=== PATIENT | female | born 1965 | race Caucasian/White ===

== ENCOUNTER 2017-12-09 17:40 | Inpatient (IN) ==
--- NOTE | 2017-12-09 18:02 | Emergency Department Note ---
Disposition Clinical Impression: Hypokalemia, Unable to ambulate, Weakness, Thrombocytopenia, Neuropathy Depression Qualifiers: Depression Type: unspecified Qualified Code(s): F32.9 - Major depressive disorder, single episode, unspecified Leukopenia Qualifiers: Leukopenia type: unspecified Qualified Code(s): D72.819 - Decreased white blood cell count, unspecified Back pain Qualifiers: Back pain location: low back pain Chronicity: chronic Back pain laterality: right Sciatica presence: without sciatica Qualified Code(s): M54.5 - Low back pain; G89.29 - Other chronic pain Disposition: Admitted As Inpatient Condition: Good Forms: ED Satisfaction Letter General Adult HPI - General Chief complaint: ED Fall Stated complaint: Can't walk Time Seen by Provider: 12/09/17 17:52 Source: patient Mode of arrival: ambulatory Limitations: no limitations Nursing Notes Reviewed: Yes Vital Signs Reviewed: Yes - History of Present Illness Pain Scale: 8 - Related Data Home Medications Medication Instructions Recorded Confirmed diazePAM [Valium] 5 mg PO TID 02/28/17 12/09/17 lamoTRIgine [Lamictal] 200 mg PO BID 02/28/17 12/09/17 metFORMIN [Glucophage] 500 mg PO BID 02/28/17 12/09/17 Iloperidone [Fanapt] 4 mg PO BID 03/18/17 12/09/17 Benztropine Mesylate [Benztropine 2 mg PO DAILY 12/09/17 12/09/17 Mesylate] DULoxetine [Cymbalta] 20 mg PO DAILY 12/09/17 12/09/17 OxyCODONE Immed Rel [Roxicodone 10 10 mg PO Q8H 12/09/17 12/09/17 MG] Pregabalin [Lyrica] 150 mg PO BID 12/09/17 12/09/17 Allergies Allergy/AdvReac Type Severity Reaction Status Date / Time carbamazepine [From Tegretol] Allergy See Verified 03/20/17 14:28 Comments Past Medical History - Past Medical History Medical history: Reports: diabetes, RA, other Surgical history: Reports: herniorrhaphy, orthopedic, other, other Psychiatric history: Reports: anxiety, bipolar, depression - Social History Smoking Status: Never smoker Smokeless Tobacco Status: No Alcohol use: Reports: none Drug use: Reports: none Course Vital Signs Temperature 98.0 F 12/09/17 17:45 Pulse Rate 111 12/09/17 17:45 Respiratory Rate 18 12/09/17 17:45 Blood Pressure 115/76 12/09/17 17:45 O2 Sat by Pulse Oximetry 95 12/09/17 17:45 Temperature 98.0 F 12/09/17 17:54 Pulse Rate 92 12/09/17 20:40 Respiratory Rate 16 12/09/17 20:40 Blood Pressure 142/85 12/09/17 20:40 O2 Sat by Pulse Oximetry 95 12/09/17 20:40 Oxygen Delivery Oxygen Delivery Room Air Medical Decision Making - Lab Data Result diagrams: 12/09/17 18:34 12/09/17 18:08 Lab Results 12/09/17 12/09/17 12/09/17 Range/Units 18:08 18:08 18:17 WBC (4.3-11.1) K/mcL RBC (3.82-4.97) M/mcL Hgb (11.5-15.4) g/dL Hct (35.3-44.9) % MCV (83.0-100.0) fL MCH (28.0-33.3) pg MCHC (31.6-35.5) g/dL RDW (11.5-14.5) % Plt Count (140-400) K/mcL MPV (9.4-12.4) fL Immature Gran % (0-4) % Seg Neutrophils % % Lymphocytes % % Monocytes % % Eosinophils % % Basophils % % Neutrophils # (1.6-8.9) K/mcL Lymphocytes # (0.6-4.6) K/mcL Monocytes # (0.0-1.3) K/mcL Eosinophils # (0.0-0.6) K/mcL Basophils # (0.0-0.2) K/mcL Immature Plt Fraction (1.1-6.1) % VBG pH 7.42 (7.32-7.42) pH Units VBG pCO2 43 (41-51) mmHg VBG pO2 94 H (25-50) mmHg VBG HCO3 27 (21-27) mEq/L Sodium 138 (136-145) mEq/L Potassium 3.3 L (3.5-5.1) mEq/L Chloride 102 (98-107) mEq/L Carbon Dioxide 26 (23-29) mEq/L BUN 5 L (6-20) mg/dL Creatinine 0.70 (0.60-1.20) mg/dL Est GFR ( Amer) > 60 (> 60) Est GFR (Non-Af Amer) > 60 (> 60) BUN/Creatinine Ratio 7 (6-26) Glucose 138 H (70-105) mg/dL Calculated Osmolality 285 (280-300) Calcium 9.3 (8.6-10.3) mg/dL Total Bilirubin 0.6 (0.3-1.0) mg/dL AST 24 (13-39) Units/L ALT 16 (7-52) Units/L Alkaline Phosphatase 76 (34-104) Units/L Serum Total Protein 6.4 (6.4-8.9) g/dL Albumin 4.2 (3.5-5.7) g/dL Globulin 2.2 L (2.4-3.5) g/dL Albumin/Globulin Ratio 1.9 (1.1-2.2) Urine Color (Yellow) Urine Clarity (Clear) Urine pH (5.0-8.0) pH Units Ur Specific [place] (1.010-1.025) Urine Protein (Neg-Trace) mg/dL Urine Glucose (UA) (Normal) mg/dL Urine Ketones (Negative) mg/dL Urine Blood (Negative) Urine Nitrite (Negative) Urine Bilirubin (Negative) Urine Urobilinogen (Normal) mg/dL Ur Leukocyte Esterase (Negative) Urine Microscopic RBC (0-3) per hpf Urine Microscopic WBC (0-3) per hpf Ur Squamous Epith Cells (None-Few) per lpf Urine Bacteria (None-Few) per hpf Hyaline Casts (None-Few) per lpf Ur Culture Indicated? (NO) Specimen Rejected Clotted 12/09/17 12/09/17 Range/Units 18:22 18:34 WBC 3.7 L (4.3-11.1) K/mcL RBC 4.79 (3.82-4.97) M/mcL Hgb 12.1 (11.5-15.4) g/dL Hct 38.9 (35.3-44.9) % MCV 81.2 L (83.0-100.0) fL MCH 25.3 L (28.0-33.3) pg MCHC 31.1 L (31.6-35.5) g/dL RDW 16.6 H (11.5-14.5) % Plt Count 51 L (140-400) K/mcL MPV 10.4 (9.4-12.4) fL Immature Gran % 0.5 (0-4) % Seg Neutrophils % 69.8 % Lymphocytes % 20.7 % Monocytes % 8.2 % Eosinophils % 0.5 % Basophils % 0.3 % Neutrophils # 2.6 (1.6-8.9) K/mcL Lymphocytes # 0.8 (0.6-4.6) K/mcL Monocytes # 0.3 (0.0-1.3) K/mcL Eosinophils # 0.0 (0.0-0.6) K/mcL Basophils # 0.0 (0.0-0.2) K/mcL Immature Plt Fraction 3.8 (1.1-6.1) % VBG pH (7.32-7.42) pH Units VBG pCO2 (41-51) mmHg VBG pO2 (25-50) mmHg VBG HCO3 (21-27) mEq/L Sodium (136-145) mEq/L Potassium (3.5-5.1) mEq/L Chloride (98-107) mEq/L Carbon Dioxide (23-29) mEq/L BUN (6-20) mg/dL Creatinine (0.60-1.20) mg/dL Est GFR ( Amer) (> 60) Est GFR (Non-Af Amer) (> 60) BUN/Creatinine Ratio (6-26) Glucose (70-105) mg/dL Calculated Osmolality (280-300) Calcium (8.6-10.3) mg/dL Total Bilirubin (0.3-1.0) mg/dL AST (13-39) Units/L ALT (7-52) Units/L Alkaline Phosphatase (34-104) Units/L Serum Total Protein (6.4-8.9) g/dL Albumin (3.5-5.7) g/dL Globulin (2.4-3.5) g/dL Albumin/Globulin Ratio (1.1-2.2) Urine Color Yellow (Yellow) Urine Clarity Cloudy A (Clear) Urine pH 5.0 (5.0-8.0) pH Units Ur Specific [place] 1.015 (1.010-1.025) Urine Protein Negative (Neg-Trace) mg/dL Urine Glucose (UA) Normal (Normal) mg/dL Urine Ketones Negative (Negative) mg/dL Urine Blood Negative (Negative) Urine Nitrite Negative (Negative) Urine Bilirubin Negative (Negative) Urine Urobilinogen Normal (Normal) mg/dL Ur Leukocyte Esterase Negative (Negative) Urine Microscopic RBC 0-3 (0-3) per hpf Urine Microscopic WBC 0-3 (0-3) per hpf Ur Squamous Epith Cells Many H (None-Few) per lpf Urine Bacteria None Seen (None-Few) per hpf Hyaline Casts Few (None-Few) per lpf Ur Culture Indicated? NO (NO) Specimen Rejected Attestation Statement - Attestation Attestation: Resident Attestation: I examined this patient and my medical decision making was reviewed with the Resident Physician. I agree with the documented findings, disposition and treatment plan as described except to the extent set forth below. We independently had [id number] contact with the patient. Patient with diabetes and complication still lower extremities. Patient here for evaluation of pain and decreased ability to walk. She was started on Cymbalta approximately a month ago for depression. She has also been taken off her narcotic medications and is being weaned down. The patient states that yesterday she had no significant symptoms. Today she has significant amounts of pain and decreased ability to walk. She states she has fallen multiple times. She has undergone further workup for this in the past which she was at [facility] and later went to rehabilitation for. She states that rehabilitation got her to a point where she was able to return home. Patient states these symptoms are similar in nature. Patient has no significant pain to the right shoulder as well as the left hip and lower back. These will undergo further x- ray imaging. Awake alert and oriented 3. Patient's verbal responses are slow. Her 2 poles are mildly dilated but equal and reactive. She has significant tenderness to the low back consistent with a positive Zachary sign. She also has no ability to discriminate between 2 point sensation to the lower extremities. Patient's imaging is unremarkable. She does have some chronic changes which are slightly worse on blood work. She is hypokalemic. The patient is unable to ambulate in the emergency department and will be admitted for further evaluation and management.
[2017-12-09] MEDS ORDERED: 0.9 % Sodium Chloride 1,000 ML IVC ONE (18:06)
--- NOTE | 2017-12-09 18:06 | Emergency Department Note ---
Disposition Clinical Impression: Hypokalemia, Unable to ambulate, Weakness, Thrombocytopenia, Neuropathy Depression Qualifiers: Depression Type: unspecified Qualified Code(s): F32.9 - Major depressive disorder, single episode, unspecified Leukopenia Qualifiers: Leukopenia type: unspecified Qualified Code(s): D72.819 - Decreased white blood cell count, unspecified Back pain Qualifiers: Back pain location: low back pain Chronicity: acute Back pain laterality: midline Sciatica presence: without sciatica Qualified Code(s): M54.5 - Low back pain Disposition: Admitted As Inpatient Condition: Good Referrals: Jaron Chan DPM [Primary Care Provider] - Forms: ED Satisfaction Letter Time of Disposition: 21:01 General Adult HPI - General Chief complaint: ED Fall Stated complaint: Can't walk Time Seen by Provider: 12/09/17 17:52 Source: patient Mode of arrival: ambulatory Limitations: no limitations Nursing Notes Reviewed: Yes Vital Signs Reviewed: Yes - History of Present Illness HPI Narrative: Female patient presenting to emergency department with a complaint of inability to walk today. After talking to her about this she states that when she woke up this morning she tried to get out of bed and she was just so weak that she could not stand up. She has been ambulatory however her legs frequently give out on her. She has fallen several times today. She does live with her sister. Her sister reports no syncope. The patient also states that she has not passed out. She states she has struck her head several times but is not on any blood thinners. She complains of bilateral shoulder pain as well as lower extremity weakness. Patient states that she is a diabetic. She has been taking her medication as prescribed however does not check her blood sugar. She denies any recent illnesses. She specifically denies any chest pain shortness of breath nausea vomiting diarrhea or abdominal pain. She denies any numbness or tingling in any of her extremities. She denies any burning on urination however does report decreased urination. States that she has not been eating and drinking well today. Patient had to be assisted up into the car by EMS. She does have a recent admission to a hospital in nursing facility for deconditioning and lower extremity weakness. However she is currently living with her sister. Pain Scale: 8 - Related Data Home Medications Medication Instructions Recorded Confirmed diazePAM [Valium] 5 mg PO BID 02/28/17 03/18/17 lamoTRIgine [Lamictal] 100 mg PO HS 02/28/17 03/18/17 metFORMIN [Glucophage] 500 mg PO 0800 02/28/17 03/18/17 Iloperidone [Fanapt] 4 mg PO BID 03/18/17 03/18/17 Benztropine Mesylate [Benztropine 2 mg PO DAILY 12/09/17 12/09/17 Mesylate] DULoxetine [Cymbalta] 20 mg PO DAILY 12/09/17 12/09/17 OxyCODONE Immed Rel [Roxicodone 10 10 mg PO Q8H 12/09/17 12/09/17 MG] Pregabalin [Lyrica] 150 mg PO BID 12/09/17 12/09/17 Allergies Allergy/AdvReac Type Severity Reaction Status Date / Time carbamazepine [From Tegretol] Allergy See Verified 03/20/17 14:28 Comments All systems ED: reviewed and negative except as stated. Review of Systems: As Per HPI Constitutional: Denies: fever ENT ED: Denies: congestion Cardiovascular: Denies: chest pain, palpitations, syncope Respiratory: Denies: cough, dyspnea Gastrointestinal: Denies: abdominal pain, nausea, vomiting, diarrhea, hematemesis, melena, hematochezia Genitourinary: Reports: frequency (decreased). Denies: urgency, dysuria, hematuria Musculoskeletal: Reports: other (both shoulders and lower legs). Denies: back pain, neck pain Neurological: Reports: weakness. Denies: headache, numbness, paresthesias Past Medical History - Past Medical History Attestation: Yes The following information was validated with the patient. Source: patient Medical history: Reports: diabetes, RA, other Surgical history: Reports: herniorrhaphy, orthopedic, other, other Psychiatric history: Reports: anxiety, bipolar, depression - Social History Smoking Status: Never smoker Smokeless Tobacco Status: No Alcohol use: Reports: none Drug use: Reports: none Physical Exam - General Limitations: no limitations General appearance: alert, in no apparent distress - Head Head exam: atraumatic, normocephalic, normal inspection - Eye Eye exam: Present: normal appearance, PERRL, EOMI - ENT ENT exam: normal exam, normal oropharynx, mucous membranes moist - Neck Neck exam: Present: normal inspection, full ROM, trachea midline - Chest Chest inspection: Present: normal inspection, symmetric chest wall rise - Respiratory Respiratory exam: Present: normal lung sounds bilaterally. Absent: respiratory distress, accessory muscle use - Cardiovascular Cardiovascular exam: Present: regular rate, normal rhythm, normal heart sounds - Abdominal Exam Abdominal exam: Present: soft, Non-Tender. Absent: tenderness, distention, guarding, rebound, rigidity, organomegaly, Potter's sign, tenderness at McBurney 's Point - Extremities Exam Extremities exam: Present: tenderness (Bilateral shoulders. Does have full range of motion of her shoulders. Weakness in her lower extremities. No 2 point discrimination of her lower extremities however does have good sensation throughout her lower cavities.), normal capillary refill, other (Amputation to bilateral forefeet. Does have a small abrasion to the stump on the right. Bleeding at this time. No signs of infection.). Absent: pedal edema - Back Exam Back exam: Present: normal inspection, full ROM. Absent: tenderness - Neurological Exam Neurological exam: Present: alert, oriented X3 - Psychiatric Psychiatric exam: Present: normal affect, normal mood - Skin Skin exam: Present: warm, dry, intact, normal color Course Course Narrative: Female patient with complaint of multiple falls today. She is a diabetic. 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 She does not take any blood thinners. She is mentating appropriately alert and oriented 3. Knows who the people in her room are. Pupils are equal and reactive to light. Good sensation throughout. Patient does have pain to midline palpation of the lumbar spine area. No headaches. No cervical spine tenderness step-offs or deformities to midline palpation. Also no thoracic pain step-offs or deformities to midline palpation. Abdomen is soft nontender nondistended not rigid. She states that she cannot give us urine sample but will allow us to get a catheter specimen. We will get basic lab workup on patient as well as a CT of her head and lumbar spine. We will also give her a liter of fluid at this time. She does appear to be clinically dry and she is tachycardic initially. She chronically takes Valium and Percocet. She states that she has not had her Percocet today. States that she does not take this regularly and she only takes a third of her pills which are 10 mg. Patient has no gross deformity to her extremities. She has full range of motion of both shoulders but does complain of pain to palpation of her shoulders bilaterally. No ecchymosis. Lung sounds are clear heart tones are normal. - Reevaluation(s) Reevaluation #1: CT of patient's head shows no signs of acute abnormality. She does have spinal stenosis of her lumbar area. We did provide her with a Percocet. She is unable to stand and ambulate here in emergency department. We will admit patient to the hospital for deconditioning lower extremity weakness. She was also found to be hypokalemic. We did replace this while here. She is also thrombocytopenic. She has been chemotherapy before however does appear to be worsening. - Consultations Consultation #1: Dr Baez accepted Pt in stable condition. Time: 20:46 Vital Signs Temperature 98.0 F 12/09/17 17:45 Pulse Rate 111 12/09/17 17:45 Respiratory Rate 18 12/09/17 17:45 Blood Pressure 115/76 12/09/17 17:45 O2 Sat by Pulse Oximetry 95 12/09/17 17:45 Temperature 98.0 F 12/09/17 17:54 Pulse Rate 92 12/09/17 20:40 Respiratory Rate 16 12/09/17 20:40 Blood Pressure 142/85 12/09/17 20:40 O2 Sat by Pulse Oximetry 95 12/09/17 20:40 Oxygen Delivery Oxygen Delivery Room Air Medical Decision Making - Medical Records Medical records reviewed: Yes I reviewed the patient's medical records. - Lab Data Lab results reviewed: Yes I reviewed the patient's lab results. Result diagrams: 12/09/17 18:34 12/09/17 18:08 Lab Results 12/09/17 12/09/17 12/09/17 Range/Units 18:08 18:08 18:17 WBC (4.3-11.1) K/mcL RBC (3.82-4.97) M/mcL Hgb (11.5-15.4) g/dL Hct (35.3-44.9) % MCV (83.0-100.0) fL MCH (28.0-33.3) pg MCHC (31.6-35.5) g/dL RDW (11.5-14.5) % Plt Count (140-400) K/mcL MPV (9.4-12.4) fL Immature Gran % (0-4) % Seg Neutrophils % % Lymphocytes % % Monocytes % % Eosinophils % % Basophils % % Neutrophils # (1.6-8.9) K/mcL Lymphocytes # (0.6-4.6) K/mcL Monocytes # (0.0-1.3) K/mcL Eosinophils # (0.0-0.6) K/mcL Basophils # (0.0-0.2) K/mcL Immature Plt Fraction (1.1-6.1) % VBG pH 7.42 (7.32-7.42) pH Units VBG pCO2 43 (41-51) mmHg VBG pO2 94 H (25-50) mmHg VBG HCO3 27 (21-27) mEq/L Sodium 138 (136-145) mEq/L Potassium 3.3 L (3.5-5.1) mEq/L Chloride 102 (98-107) mEq/L Carbon Dioxide 26 (23-29) mEq/L BUN 5 L (6-20) mg/dL Creatinine 0.70 (0.60-1.20) mg/dL Est GFR ( Amer) > 60 (> 60) Est GFR (Non-Af Amer) > 60 (> 60) BUN/Creatinine Ratio 7 (6-26) Glucose 138 H (70-105) mg/dL Calculated Osmolality 285 (280-300) Calcium 9.3 (8.6-10.3) mg/dL Total Bilirubin 0.6 (0.3-1.0) mg/dL AST 24 (13-39) Units/L ALT 16 (7-52) Units/L Alkaline Phosphatase 76 (34-104) Units/L Serum Total Protein 6.4 (6.4-8.9) g/dL Albumin 4.2 (3.5-5.7) g/dL Globulin 2.2 L (2.4-3.5) g/dL Albumin/Globulin Ratio 1.9 (1.1-2.2) Urine Color (Yellow) Urine Clarity (Clear) Urine pH (5.0-8.0) pH Units Ur Specific [place] (1.010-1.025) Urine Protein (Neg-Trace) mg/dL Urine Glucose (UA) (Normal) mg/dL Urine Ketones (Negative) mg/dL Urine Blood (Negative) Urine Nitrite (Negative) Urine Bilirubin (Negative) Urine Urobilinogen (Normal) mg/dL Ur Leukocyte Esterase (Negative) Urine Microscopic RBC (0-3) per hpf Urine Microscopic WBC (0-3) per hpf Ur Squamous Epith Cells (None-Few) per lpf Urine Bacteria (None-Few) per hpf Hyaline Casts (None-Few) per lpf Ur Culture Indicated? (NO) Specimen Rejected Clotted 12/09/17 12/09/17 Range/Units 18:22 18:34 WBC 3.7 L (4.3-11.1) K/mcL RBC 4.79 (3.82-4.97) M/mcL Hgb 12.1 (11.5-15.4) g/dL Hct 38.9 (35.3-44.9) % MCV 81.2 L (83.0-100.0) fL MCH 25.3 L (28.0-33.3) pg MCHC 31.1 L (31.6-35.5) g/dL RDW 16.6 H (11.5-14.5) % Plt Count 51 L (140-400) K/mcL MPV 10.4 (9.4-12.4) fL Immature Gran % 0.5 (0-4) % Seg Neutrophils % 69.8 % Lymphocytes % 20.7 % Monocytes % 8.2 % Eosinophils % 0.5 % Basophils % 0.3 % Neutrophils # 2.6 (1.6-8.9) K/mcL Lymphocytes # 0.8 (0.6-4.6) K/mcL Monocytes # 0.3 (0.0-1.3) K/mcL Eosinophils # 0.0 (0.0-0.6) K/mcL Basophils # 0.0 (0.0-0.2) K/mcL Immature Plt Fraction 3.8 (1.1-6.1) % VBG pH (7.32-7.42) pH Units VBG pCO2 (41-51) mmHg VBG pO2 (25-50) mmHg VBG HCO3 (21-27) mEq/L Sodium (136-145) mEq/L Potassium (3.5-5.1) mEq/L Chloride (98-107) mEq/L Carbon Dioxide (23-29) mEq/L BUN (6-20) mg/dL Creatinine (0.60-1.20) mg/dL Est GFR ( Amer) (> 60) Est GFR (Non-Af Amer) (> 60) BUN/Creatinine Ratio (6-26) Glucose (70-105) mg/dL Calculated Osmolality (280-300) Calcium (8.6-10.3) mg/dL Total Bilirubin (0.3-1.0) mg/dL AST (13-39) Units/L ALT (7-52) Units/L Alkaline Phosphatase (34-104) Units/L Serum Total Protein (6.4-8.9) g/dL Albumin (3.5-5.7) g/dL Globulin (2.4-3.5) g/dL Albumin/Globulin Ratio (1.1-2.2) Urine Color Yellow (Yellow) Urine Clarity Cloudy A (Clear) Urine pH 5.0 (5.0-8.0) pH Units Ur Specific [place] 1.015 (1.010-1.025) Urine Protein Negative (Neg-Trace) mg/dL Urine Glucose (UA) Normal (Normal) mg/dL Urine Ketones Negative (Negative) mg/dL Urine Blood Negative (Negative) Urine Nitrite Negative (Negative) Urine Bilirubin Negative (Negative) Urine Urobilinogen Normal (Normal) mg/dL Ur Leukocyte Esterase Negative (Negative) Urine Microscopic RBC 0-3 (0-3) per hpf Urine Microscopic WBC 0-3 (0-3) per hpf Ur Squamous Epith Cells Many H (None-Few) per lpf Urine Bacteria None Seen (None-Few) per hpf Hyaline Casts Few (None-Few) per lpf Ur Culture Indicated? NO (NO) Specimen Rejected - Radiology Data Radiology results reviewed: Yes I reviewed the patient's radiology results. Chest X-Ray 12/09/17 17:56 IMPRESSION: No acute finding in the chest. D/ / Zachary Rodarte MD / Zachary Rodarte MD Interpreting Provider: Zachary Rodarte MD Head CT 12/09/17 18:02 IMPRESSION: No acute intracranial abnormality. D/ / Chay Soto MD / Chay Soto MD Interpreting Provider: Chay Soto MD Lumbar Spine CT 12/09/17 18:11 IMPRESSION: 1. No acute finding in the lumbar spine. 2. Questionable splenomegaly partially observed in the abdomen. Consider correlation with physical exam. D/ / Zachary Rodarte MD / Zachary Rodarte MD Interpreting Provider: Zachary Rodarte MD Shoulder X-Ray 12/09/17 18:14 IMPRESSION: No acute abnormality in the bilateral shoulders. Nonaggressive lucent lesion in the proximal left humerus. Degenerative change in the right AC joint. D/ / Zachary Rodarte MD / Zachary Rodarte MD Interpreting Provider: Zachary Rodarte MD Foot X-Ray 12/09/17 19:20 IMPRESSION: Stable postsurgical changes. No acute osseous abnormality. D/ / 12/09/2017 20:16:07 Chay Soto MD / suzy Interpreting Provider: Chay Soto MD
[2017-12-09 18:23] LABS: VBG HCO3 27 mEq/L (21-27); VBG PCO2 43 mmHg (41-51); VBG PH 7.42 pH Units (7.32-7.42); VBG PO2 94 mmHg (25-50)
[2017-12-09 18:36] LABS: Bilirubin,Urine Negative (Negative); Blood,Urine Negative (Negative); Clarity,Urine Cloudy (Clear); Color,Urine Yellow (Yellow); Glucose,Urine (UA) Normal (Normal); Ketones,Urine Negative (Negative); Leukocyte Esterase,Urine Negative (Negative); Nitrite,Urine Negative (Negative); Protein,Urine Negative (Neg-Trace); Specific Gravity,Urine 1.015 (1.010-1.025); Urobilinogen,Urine Normal (Normal)
[2017-12-09 18:38] LABS: Bacteria,Urine None Seen per hpf (None-Few); Hyaline Casts,Urine Few per lpf (None-Few); RBC,Urine 0-3 per hpf (0-3); Squamous Epithelial Cell,Urine Many per lpf (None-Few); WBC,Urine 0-3 per hpf (0-3)
[2017-12-09 18:43] LABS: Alanine Aminotransferase 16 Units/L (7-52); Albumin 4.2 g/dL (3.5-5.7); Albumin/Globulin Ratio 1.9 (1.1-2.2); Alkaline Phosphatase 76 Units/L (34-104); Aspartate Amino Transferase 24 Units/L (13-39); BUN/Creatinine Ratio 7 (6-26); Bilirubin,Total 0.6 mg/dL (0.3-1.0); Blood Urea Nitrogen 5 mg/dL (6-20); Calcium 9.3 mg/dL (8.6-10.3); Carbon Dioxide 26 mEq/L (23-29); Chloride 102 mEq/L (98-107); Globulin 2.2 g/dL (2.4-3.5); Glucose 138 mg/dL (70-105); Osmolality,Calculated 285 (280-300); Potassium 3.3 mEq/L (3.5-5.1); Sodium 138 mEq/L (136-145); Total Protein 6.4 g/dL (6.4-8.9); eGFR For Non-African Americans > 60 (> 60)
[2017-12-09 18:57] LABS: Basophils % 0.3 %; Eosinophils % 0.5 %; Hematocrit 38.9 % (35.3-44.9); Hemoglobin 12.1 g/dL (11.5-15.4); Immature Granulocytes % 0.5 % (0-4); Immature Platelets 3.8 % (1.1-6.1); Lymphocytes # 0.8 K/mcL (0.6-4.6); Lymphocytes % 20.7 %; Mean Corpuscular HGB Conc 31.1 g/dL (31.6-35.5); Mean Corpuscular Hemoglobin 25.3 pg (28.0-33.3); Mean Corpuscular Volume 81.2 fL (83.0-100.0); Mean Platelet Volume 10.4 fL (9.4-12.4); Monocytes # 0.3 K/mcL (0.0-1.3); Monocytes % 8.2 %; Neutrophils # 2.6 K/mcL (1.6-8.9); Red Blood Count 4.79 M/mcL (3.82-4.97); Red Cell Distribution Width 16.6 % (11.5-14.5); Segmented Neutrophils % 69.8 %
[2017-12-09 19:17] LABS: Platelet Count 51 K/mcL (140-400)
[2017-12-09] MEDS ORDERED: Potassium Chloride Elixir 20 MEQ/15 ML UDC PO ONE (19:19)
[2017-12-09] MEDS ORDERED: *HR* OxyCODONE/APAP 5/325 TABLET PO ONE (20:04)
[2017-12-09] MEDS ORDERED: Naloxone 0.4 MG/ML INJ IVP PRN (21:44)
--- NOTE | 2017-12-09 22:54 | Internal Med History&Physical ---
Date of Encounter: 12/11/17 Time of Encounter: 23:55 Internal Medicine - H&P: HPI Chief complaint: Lower Extremity Weakness History of present illness: Ms. Mejia is a 52 year old female with a past medical history of poorly controlled diabetes status post bilateral forefoot amputation who presents today to the ED complaining of lower extremity weakness. Patient is a difficult historian but states that this morning she tried to get out of bed but felt too weak to stand up and fell to the floor while attempting to do so. She reports falling several times today including while trying to use the bathroom, however, denies syncope. Patient however states that at baseline she has difficulty getting out of bed and often requires the assistance of her sister to do so. Once up she ambulates with a walker. When asked why she attempted to get out of bed without the aid of her sister, she states she should have waited. Patient reports history of falls over the past year on and off. However, she feels that this morning she noted diminished sensation in her feet and that her legs seemed to buckle more than usual. She also did note some lightheadedness. Patient reports a history of reflex sympathetic dystrophy which was diagnosed relatively recently around the same time of her bilateral foot amputations. Patient is also complaining of bilateral shoulder pain which she states is also new for her. Patient denies any fever, chills, chest pain, shortness of breath, nausea, vomiting, diarrhea, dysuria. Denies any recent illness. She does states that she has not been eating and drinking well today. Patient called EMS and per reports, she had to be assisted up into the vehicle. She also states that she is currently receiving physical therapy 2 times a week at home for the past 2 weeks Patient currently lives with her sister. Past Med Surg Social Fam HX - Past Medical History Medical history: diabetes, RA, other Additional medical history: pre-diabetic, uncontrollable bladder and weakness Psychiatric history: anxiety, bipolar, depression - Past Surgical History Surgical History: herniorrhaphy, orthopedic, other, other Additional surgical history: bilateral foot surgery, bliateral metatarsal amputation. - Social History Smoking Status: Never smoker Smokeless Tobacco Status: No Alcohol use: none Drug use: none - Family History Sister Living Status: Hx Family Cancer: Yes (breast ca) Internal Medicine - H&P: Meds diazePAM [Valium] 5 mg PO TID 02/28/17 [History] lamoTRIgine [Lamictal] 200 mg PO BID 02/28/17 [History] metFORMIN [Glucophage] 500 mg PO BID 02/28/17 [History] Iloperidone [Fanapt] 4 mg PO BID 03/18/17 [History] Benztropine Mesylate 2 mg PO DAILY 12/09/17 [History] DULoxetine [Cymbalta] 20 mg PO DAILY 12/09/17 [History] OxyCODONE Immed Rel [Roxicodone 10 MG] 10 mg PO Q8H 12/09/17 [History] Pregabalin [Lyrica] 150 mg PO BID 12/09/17 [History] Silvasorb 1 appl TP DAILY #2 tube 12/11/17 [Rx] 3 Allergy/AdvReac Type Severity Reaction Status Date / Time carbamazepine [From Tegretol] Allergy See Verified 03/20/17 14:28 Comments All Systems PM: A 10-system review of systems was performed and is negative for pertinent findings except as documented above in the HPI. - Constitutional Constitutional: no chills, no fever(s), no night sweats - EENT Eyes: no change in vision, no discharge, no pain, no photophobia Ears: no ear discharge, no ear pain, no tinnitus Nose, mouth and throat: no dysphagia, no nasal discharge, no neck pain, no sore throat - Cardiovascular Cardiovascular ROS IM: no chest pain, no diaphoresis, no dyspnea, no lightheadedness, no palpitations, no syncope - Respiratory Respiratory: no cough, no dyspnea, no wheezing, no excessive phlegm production - Gastrointestinal Gastrointestinal: no abdominal pain, no diarrhea, no hematemesis, no hematochezia, no melena, no nausea, no vomiting - Genitourinary Genitourinary: no change in urinary stream, no dysuria, no flank pain, no hematuria - Musculoskeletal Musculoskeletal ROS IM: no numbness, no tingling - Integumentary Integumentary IM: no rash, no unusual bruising - Neurological Neurological ROS: no confusion, no convulsions, no focal weakness, no numbness, no tingling, no tremor(s) - Hematologic/Lymphatic Hematologic/Lymphatic: no easy bruising - Constitutional Vitals: Temp Pulse Resp BP Pulse Ox 98.0 F 92 16 147/72 95 12/09/17 17:54 12/09/17 20:40 12/09/17 22:26 12/09/17 22:26 12/09/17 20:40 Exam: General: Alert and oriented Skin:Normal color, no rash, no lesions. HEENT:EOM, pupils equal, round and reactive. Cardiovascular:Normal S1 & S2, no rubs, murmurs or gallops. No JVD. Pulse regular. Lungs:Normal breath sounds, no wheezes or crackles. Abdomen:Soft, non-tender, no rigidity. Extremities:No deformity, no edema or tenderness, no joint swelling or clubbing. Neurological:Normal cognition and motor skills. Pulses:Carotid and radial pulses normal +2. Rest of the physical exam is non contributory Internal Med - H&P Results - Labs CBC & Chem 7: 12/10/17 06:14 12/10/17 06:14 - Assessment and plan (1) Weakness of lower extremity Current Visit: Yes Status: Resolved Assessment and plan: Weakness of the lower extremities in the setting of bilateral foot amputations. Physical exam notable for sluggish pupillary reflex, 3-5/5 muscle strength in the lower extremities bilaterally and diminished sensation on the soles of the feet. CT scan of the lumbar spine shows no evidence of acute findings with diffuse disc bulge at L4-L5. CT of the head showed no acute intracranial abnormalities. Laboratory results were unremarkable except for mild hypokalemia. Symptoms possibly secondary to deconditioning versus medication side effect. Low suspicion for spinal stenosis or cauda equina syndrome. At this point unable to obtain MRI due to patient's hardware and reported nerve stimulator. We will obtain a CPK and phosphorus level We will hold Patient's pregabalin and benzodiazepine for now. IV fluids. Repleat potassium PT OT Neurology consult for further evaluation Qualifiers: Laterality: bilateral Qualified Code(s): R29.898 - Other symptoms and signs involving the musculoskeletal system (2) Hypokalemia Current Visit: Yes Status: Resolved Assessment and plan: Replete potassium. Check a.m. chemistry. (3) Diabetes Current Visit: Yes Status: Chronic Assessment and plan: Blood glucose checks. Sliding scale insulin. Qualifiers: Diabetes mellitus type: type 2 Diabetes mellitus technician terminal and repeater insulin use: without technician terminal and repeater use Diabetes mellitus complication status: with unspecified complications Qualified Code(s): E11.8 - Type 2 diabetes mellitus with unspecified complications (4) Depression Current Visit: Yes Status: Chronic Assessment and plan: Continue antidepressants. Qualifiers: Depression Type: major depressive disorder Major depression recurrence: recurrent Active/Remission status: currently active Major depression episode severity: mild Qualified Code(s): F33.0 - Major depressive disorder, recurrent, mild (5) DVT prophylaxis Current Visit: Yes Status: Acute Assessment and plan: Subcutaneous heparin - Time Spent With Patient Total time spent is greater than 50% in coordination of care (as documented) at patient's floor/unit and/or counseling patient:
[2017-12-09 23:21] LABS: Creatine Kinase 46 Units/L (30-223); Phosphorous 2.8 mg/dL (2.7-4.5)
[2017-12-10] MEDS: *HR* Heparin 5,000 UNIT/ML VIAL SQ SCH ×4 (02:25→20:36)
[2017-12-10] MEDS ORDERED: *HR* Dextrose 50 % in Water (Syg) 50 ML SYRINGE IVP PRN (03:48)
[2017-12-10] MEDS ORDERED: D5% in Water 1,000 ML IVC PRN (03:48)
[2017-12-10] MEDS ORDERED: Dextrose Gel 15 GM/37.5 ML TUBE PO PRN ×2 (03:48)
[2017-12-10 06:30] LABS: Basophils % 0.3 %; Eosinophils % 1.3 %; Immature Granulocytes % 0.3 % (0-4)
[2017-12-10 06:32] LABS: Hematocrit 38.3 % (35.3-44.9); Hemoglobin 11.8 g/dL (11.5-15.4); Immature Platelets 3.9 % (1.1-6.1); Lymphocytes # 0.7 K/mcL (0.6-4.6); Lymphocytes % 23.6 %; Mean Corpuscular HGB Conc 30.8 g/dL (31.6-35.5); Mean Corpuscular Hemoglobin 25.3 pg (28.0-33.3); Mean Corpuscular Volume 82.2 fL (83.0-100.0); Mean Platelet Volume 10.7 fL (9.4-12.4); Monocytes # 0.2 K/mcL (0.0-1.3); Monocytes % 5.1 %; Neutrophils # 2.2 K/mcL (1.6-8.9); Red Blood Count 4.66 M/mcL (3.82-4.97); Segmented Neutrophils % 69.4 %
[2017-12-10 06:34] LABS: Platelet Count 48 K/mcL (140-400)
[2017-12-10 06:56] LABS: Alanine Aminotransferase 13 Units/L (7-52); Albumin 3.7 g/dL (3.5-5.7); Albumin/Globulin Ratio 1.8 (1.1-2.2); Alkaline Phosphatase 64 Units/L (34-104); Aspartate Amino Transferase 25 Units/L (13-39); BUN/Creatinine Ratio 8 (6-26); Bilirubin,Total 0.5 mg/dL (0.3-1.0); Blood Urea Nitrogen 6 mg/dL (6-20); Calcium 8.9 mg/dL (8.6-10.3); Carbon Dioxide 27 mEq/L (23-29); Chloride 103 mEq/L (98-107); Globulin 2.1 g/dL (2.4-3.5); Glucose 143 mg/dL (70-105); Magnesium 2.2 mg/dL (1.6-2.6); Osmolality,Calculated 282 (280-300); Phosphorous 3.7 mg/dL (2.7-4.5); Potassium 3.9 mEq/L (3.5-5.1); Sodium 136 mEq/L (136-145); Total Protein 5.8 g/dL (6.4-8.9); eGFR For Non-African Americans > 60 (> 60)
[2017-12-10] MEDS: Insulin LISPRO 300 UNITS/3 ML VIAL SQ SCH ×3 (07:36→18:32)
--- NOTE | 2017-12-10 13:15 | Neurology - Consult Note ---
Date of Encounter: 12/10/17 Time of Encounter: 13:06 Assessment and Plan (1) Unable to ambulate Current Visit: Yes Status: Acute Patient with bilateral forefoot ambutation, history of neuropathy who developed subacute onset of leg weakness and difficulty walking in the last 2 weeks. Neurological examination is thought to be unreliable since the patient is not fully co-operative. There is supertentorial component as well from inconsistent physical examination and fluctuating motor examination but it is determined that her muscle power is at least 4+/5 both upper and lower extremities. DTRs are preserved but not brisk and i saw no sensory level although she does have stocking patter sensory loss likely related to history of peripheral neuropathy. I do not see significant primary neurological condition that can explain her symptoms. Would recommend PT and she does agree the plan if rehab can be done at [facility] where she currently resides. She may benefit from psychiatric consultation. She does have what resembling orobuccal dyskinesis, but no history of antipsychotic exposure can be confirmed. History of Present Illness Chief complaint: Can't walk HPI: Ms. Mejia is a 52 year old female with PMH significant for RSD, neuropathy, chronic pain, bilateral forefoot amputation, obesity who developed subacute onset of leg weakness and inability to walk since the last few weeks worsening in the last 2 weeks. Patient has had similar episode two years ago and was treated at outside hospital. Since then she has had numerous admissions due to multiple complaints. This time patient states that her legs are weak and that she could not walk. She has lumbar pain stimulator placement and she can not get MRI scanning. Major complaint is that she could not walk. She lives with her sister and does have home health nursing coming 5 days a week to help her. She denies urinary and bowel incontinence. Does have pain in her back but not in her neck. When entering the room she was somewhat agitated and says we are coming back to lie to her. She states adamantly that she can not go back home because she can not walk. later on after she calmed down she apologized for a 'bad moments'. She says that nobody believed her and that she heard people talking about her conditions. Patient had unremarkable CT of head in the ER. She also had CT of lumbar spine in the ER which showed multiple level of degenerative disc disease but i do not appreciate any significant stenosis. Then i ordered CT of Cervical spine which showed no acute abnormality of the cervical spine. Past Med Surg Social Fam HX - Past Medical History Medical history: diabetes, RA, other Additional medical history: pre-diabetic, uncontrollable bladder and weakness Psychiatric history: anxiety, bipolar, depression - Past Surgical History Surgical History: herniorrhaphy, orthopedic, other, other Additional surgical history: bilateral foot surgery, bliateral metatarsal amputation. - Social History Smoking Status: Never smoker Smokeless Tobacco Status: No Alcohol use: none Drug use: none - Family History Sister Living Status: Hx Family Cancer: Yes (breast ca) Medications and Allergies diazePAM [Valium] 5 mg PO TID 02/28/17 [History] lamoTRIgine [Lamictal] 200 mg PO BID 02/28/17 [History] metFORMIN [Glucophage] 500 mg PO BID 02/28/17 [History] Iloperidone [Fanapt] 4 mg PO BID 03/18/17 [History] Benztropine Mesylate [Benztropine Mesylate] 2 mg PO DAILY 12/09/17 [History] DULoxetine [Cymbalta] 20 mg PO DAILY 12/09/17 [History] OxyCODONE Immed Rel [Roxicodone 10 MG] 10 mg PO Q8H 12/09/17 [History] Pregabalin [Lyrica] 150 mg PO BID 12/09/17 [History] 3 Allergy/AdvReac Type Severity Reaction Status Date / Time carbamazepine [From Tegretol] Allergy See Verified 03/20/17 14:28 Comments All Systems: The remainder of the systems were reviewed and are negative Physical Examination - Vital Signs Vital Signs: Initial Vital Signs Temp Pulse Resp BP Pulse Ox 98.0 F 111 18 115/76 95 12/09/17 17:45 12/09/17 17:45 12/09/17 17:45 12/09/17 17:45 12/09/17 17:45 - Constitutional General appearance: comfortable - Neurologic Sensorimotor examination: intact (Grossly intact. Pain with passive movement of legs) Motor examination - right side: 4/5: deltoids, biceps, triceps, wrist flexion, wrist extension, cleaning validation consultant, hip flexors, tibialis Anterior, quadriceps, toe extension (EHL), plantarflexion Motor examination - left side: 4/5: deltoids, biceps, triceps, wrist flexion, wrist extension, hip flexors, cleaning validation consultant, quadriceps, tibialis Anterior, toe extension (EHL), plantarflexion Detailed sensory examination: other (Grossly intact) Posture: other (None) Reflex and gait examination: other (Gait not assessed) Reflexes: Biceps: 2+, Triceps: 2+, Brachioradialis: 2+, Patella: 2+, Achilles: 2 + Mental Status Examination: awake, alert, oriented to person, oriented to place, oriented to time, follows commands appropriately, answers questions appropriately, no agnosia, no aphasia, no aproxia Results - Laboratory Findings CBC and BMP: 12/10/17 06:14 12/10/17 06:14 Abnormal lab findings: Abnormal lab results WBC 3.1 K/mcL (4.3-11.1) L 12/10/17 06:14 MCV 82.2 fL (83.0-100.0) L 12/10/17 06:14 MCH 25.3 pg (28.0-33.3) L 12/10/17 06:14 MCHC 30.8 g/dL (31.6-35.5) L 12/10/17 06:14 RDW 17.0 % (11.5-14.5) H 12/10/17 06:14 Plt Count 48 K/mcL (140-400) L 12/10/17 06:14 VBG pO2 94 mmHg (25-50) H 12/09/17 18:17 Glucose 143 mg/dL (70-105) H 12/10/17 06:14 POC Glucose 134 mg/dL (70-99) H 12/09/17 17:56 Serum Total Protein 5.8 g/dL (6.4-8.9) L 12/10/17 06:14 Globulin 2.1 g/dL (2.4-3.5) L 12/10/17 06:14 Urine Clarity Cloudy (Clear) A 12/09/17 18:22 Ur Squamous Epith Cells Many per lpf (None-Few) H 12/09/17 18:22 Consult Discharge Plan - Plan Referrals: Jaron Chan DPM [Primary Care Provider] -
[2017-12-10] MEDS: 0.9 % Sodium Chloride 1,000 ML IVC SCH ×2 (13:49→13:54)
[2017-12-10] MEDS: lamoTRIgine 100 MG TABLET PO SCH ×2 (15:52→20:35)
[2017-12-10] MEDS: Pregabalin 75 MG CAPSULE PO SCH ×2 (15:52→20:35)
[2017-12-10] MEDS: diazePAM 5 MG TABLET PO SCH ×2 (15:53→20:36)
--- NOTE | 2017-12-10 18:41 | Internal Med Progress Note ---
Hospitalist Progress Note - Encounter Date of Encounter: 12/10/17 Time of Encounter: 17:00 - Subjective Interval History: Patient's main concern today is that she needed to go to [facility] for her physical therapy and rehabilitation. She is hyper-focused on this Ativanbharate has been informed of multiple multiple times that is preparing her to go to [facility] for rehabilitation and physical therapy. It appears that she is not fully cooperative with staff and it is difficult to obtain a reliable history. She was evaluated per Dr. Koch, neurology today and was recommended that she go to physical therapy which she is agreeable to do. She denies any chest pain shortness of breath, denies that she has any pain, there was noted a patient on the left stump forefoot and, consult was made for control to evaluate. She continues to complain today that she is unable to walk, due to weakness of the lower extremities. She is history of partial left forefoot amputation, and right radical foot lateral amputation, due to poorly controlled diabetes and diabetic foot. - Exam Vitals: Temp Pulse Resp BP Pulse Ox 98.2 F 89 15 141/80 92 12/10/17 15:47 12/10/17 15:47 12/10/17 15:47 12/10/17 15:47 12/10/17 15:47 Exam: Vital signs remained stable she is mildly hypertensive at 140/80 - Assessment and Plan (1) Hypokalemia Current Visit: Yes Status: Acute Assessment and Plan: Hypokalemia has resolved as of today's lab work because sodium is 136 potassium is 3.9 We will continue to monitor (2) Depression Current Visit: Yes Status: Acute Assessment and Plan: Impression patient has history of depression and probable some psychological dysfunction, She is finding it difficult to, comprehend the need to stay in the hospital until she is placed in the [facility] for rehabilitation. Her past medical history is positive for anxiety bipolar and depression we will continue to monitor Her medication regimen of Lamictal and Lyrica , and Valium will be started today , along with continuation of Cymbalta (3) Weakness of lower extremity Current Visit: Yes Status: Acute Assessment and Plan: She does continue to continue plan of leg weakness and inability to walk she is agreeable to go to [facility] for physical therapy on a long-term basis. , Neurologist was consulted and he saw the patient today. During consult he felt that the neurological examination was to be unreliable as she was not fully cooperative feels that the leg strength was at least 4+ out of 5 on both upper and lower extremities, DTRs are preserved but not brisk and there were sensory deficits in the stocking pattern thought to be due to history of peripheral neuropathy and concurrent uncontrolled diabetes. Feel that there was no significant primary neurological condition like to explain her symptoms. We will follow with his recommendations of physical therapy and plan for rehabilitation at [facility]. field services manager have been notified and are currently working on placement. . (4) Diabetes Current Visit: Yes Status: Acute Assessment and Plan: Long-term history of uncontrolled diabetes with foot ulceration resulting in previously partial amputation of both right and left feet. Glucose today fasting was 143 POC glucose was 125 Continue with her insulin therapy and [id number] glucose is with coverage (5) DVT prophylaxis Current Visit: Yes Status: Acute Assessment and Plan: Per protocol (6) Open wound Current Visit: Yes Status: Acute Assessment and Plan: It was noted today by nursing staff that there is an open wound on the lateral portion of the left stump of the forefoot. Lesion appears to be a small abrasion approximately 1 cm with a chloride blood noted on the way. It is negative for any drainage. Does have an erythematous border. Dry sterile dressing has been applied. Consult to wound care has been made and they have advised a topical silver nitrate, with dry sterile dressing will continue with this order until healed - Summary of Assessment and Plan Summary of Assessment and Plan: Mrs. Mejia is a 52-year-old female patient to entered through the emergency room with chief complaint of weakness unable to walk. He has long-standing history of uncontrolled diabetes and foot ulcers with partial amputation of both the left and right. Today she was evaluated per neurology Dr. Koch, and he feels that there is no neurological deficit that would account for her leg weakness and inability to walk. He has recommended physical therapy and patient is willing to do that as an inpatient as long as she goes to [facility]. field services manager has been contacted and consulted and they are working active finding her placement in her home. Today she was found to have a small abrasion per nursing staff on the left foot stump, wound clinic was consulted and advised us of her nitrate dressings until healed. We will continue to monitor patient and continue her regular regimen of medications and treatment modalities until placement can be found, in [facility] for her inpatient physical therapy. - Time Spent with Patient Total time spent is greater than 50% in coordination of care (as documented) at patient's floor/unit and/or counseling patient: less than 15 minutes Plan of Care Discussed with: patient Internal Medicine: Result - Labs CBC & Chem 7: 12/10/17 06:14 12/10/17 06:14 Labs: Short CBC 12/10/17 Range/Units 06:14 WBC 3.1 L (4.3-11.1) K/mcL Hgb 11.8 (11.5-15.4) g/dL Hct 38.3 (35.3-44.9) % Plt Count 48 L (140-400) K/mcL Neutrophils # 2.2 (1.6-8.9) K/mcL BMP 12/10/17 06:14 Sodium 136 Potassium 3.9 Chloride 103 Carbon Dioxide 27 BUN 6 Creatinine 0.73 Glucose 143 H Calcium 8.9 Liver Function 12/10/17 Range/Units 06:14 Total Bilirubin 0.5 (0.3-1.0) mg/dL AST 25 (13-39) Units/L ALT 13 (7-52) Units/L Alkaline Phosphatase 64 (34-104) Units/L Albumin 3.7 (3.5-5.7) g/dL - Impressions Impressions Cervical Spine CT 12/10/17 11:33 IMPRESSION: No acute abnormality of the cervical spine. D/ / 12/10/2017 13:18:20 Mark Peters MD / tianna Interpreting Provider: Mark Peters MD Consult Discharge Plan - Plan Referrals: Jaron Chan DPM [Primary Care Provider] - (2) Depression Qualifiers: Depression Type: major depressive disorder Major depression recurrence: recurrent Active/Remission status: currently active Major depression episode severity: mild Qualified Code(s): F33.0 - Major depressive disorder, recurrent , mild (3) Weakness of lower extremity Qualifiers: Laterality: bilateral Qualified Code(s): R29.898 - Other symptoms and signs involving the musculoskeletal system (4) Diabetes Qualifiers: Diabetes mellitus type: type 2 Diabetes mellitus salvage determiner insulin use: without correction use
[2017-12-11] MEDS: *HR* Heparin 5,000 UNIT/ML VIAL SQ SCH ×3 (06:05→20:38)
[2017-12-11] MEDS: lamoTRIgine 100 MG TABLET PO SCH ×2 (07:45→20:37)
[2017-12-11] MEDS: diazePAM 5 MG TABLET PO SCH ×3 (07:45→20:37)
[2017-12-11] MEDS: Pregabalin 75 MG CAPSULE PO SCH ×2 (07:45→20:37)
[2017-12-11] MEDS: Insulin LISPRO 300 UNITS/3 ML VIAL SQ SCH ×3 (07:57→16:19)
[2017-12-11] MEDS: Silvasorb 44.4 ML TUBE TP SCH ×2 (10:52→12:51)
--- NOTE | 2017-12-11 10:54 | Discharge Summary ---
- NOTES TO OUTPATIENT PROVIDER Notes to Outpatient Provider: f/u with PCP within a week. Orders not resulted at time of discharge: Pending orders 12/10/17 20:05 C diff [C.difficile Toxin PCR (>=2yo)] [MOLMIC] Stat Date of Encounter: 12/11/17 Time of Encounter: 10:51 - Discharge Diagnosis (1) Hypokalemia Priority: Primary Status: Resolved (2) Depression Priority: Secondary Status: Chronic Qualifiers: Depression Type: major depressive disorder Major depression recurrence: recurrent Active/Remission status: currently active Major depression episode severity: mild Qualified Code(s): F33.0 - Major depressive disorder, recurrent, mild (3) Weakness of lower extremity Priority: Primary Status: Resolved Qualifiers: Laterality: bilateral Qualified Code(s): R29.898 - Other symptoms and signs involving the musculoskeletal system (4) Diabetes Priority: Secondary Status: Chronic Qualifiers: Diabetes mellitus type: type 2 Diabetes mellitus terminal operator insulin use: without terminal operator use Diabetes mellitus complication status: with unspecified complications Qualified Code(s): E11.8 - Type 2 diabetes mellitus with unspecified complications (5) DVT prophylaxis Priority: Primary Status: Acute (6) Open wound Priority: Primary Status: Acute Hospital course: Ms. Mejia is a 52 year old female - Time Spent with Patient Total time spent providing and/or coordinating discharge services: - Discharge Medications Prescriptions: Silvasorb 1 appl TP DAILY #2 tube Home Medications: diazePAM [Valium] 5 mg PO TID 02/28/17 [History] lamoTRIgine [Lamictal] 200 mg PO BID 02/28/17 [History] metFORMIN [Glucophage] 500 mg PO BID 02/28/17 [History] Iloperidone [Fanapt] 4 mg PO BID 03/18/17 [History] Benztropine Mesylate 2 mg PO DAILY 12/09/17 [History] DULoxetine [Cymbalta] 20 mg PO DAILY 12/09/17 [History] OxyCODONE Immed Rel [Roxicodone 10 MG] 10 mg PO Q8H 12/09/17 [History] Pregabalin [Lyrica] 150 mg PO BID 12/09/17 [History] Silvasorb 1 appl TP DAILY #2 tube 12/11/17 [Rx] Allergies/Adverse Reactions: 3 Allergy/AdvReac Type Severity Reaction Status Date / Time carbamazepine [From Tegretol] Allergy See Verified 03/20/17 14:28 Comments Date of admission: 12/09/17 22:01 Primary care physician: Jaron Chan, Consults: 12/10/17 00:43 Consult to Neurology [CONS] Routine Consulting Provider: Neurology [facility] Reason for Consult: Lower extremity weakness reportedly acute in onset in the absence of any significant findings on imaging or laboratory workup Call Completed: No 12/10/17 08:00 Consult to Wound Care [CONS] Routine Reason for Consult: Pt. diabetic and has scratch on left foot. Call Completed: No 12/10/17 13:17 Consult to Occupational Therapy [CONS] Routine Comment: Evaluate, develop and implement POC Reason for Consult: WEAKNESS, DECONDITIONING, FALLS Does patient have active BEDREST order?: No Is patient medically & hemodynamically stable?: Yes Consult to Physical Therapy [CONS] Routine Comment: Evaluate, develop and implement POC Reason for Consult: WEAKNESS, DECONDITIONING, FALLS Does patient have active BEDREST order?: No Is patient medically & hemodynamically stable?: Yes 12/10/17 13:50 Consult to Porcelain Technician [CONS] Routine Reason for SW Consult: SNF PLACEMENT FOR REHAB. [facility] Anticipated date of discharge: 12/11/17 - Constitutional Vitals: Temp Pulse Resp BP Pulse Ox 98.2 F 87 15 142/77 95 12/11/17 07:22 12/11/17 07:22 12/11/17 07:22 12/11/17 07:22 12/11/17 07:22 - Patient Status Condition: Good - Discharge Instructions Follow Up With: Jaron Chan DPM [Primary Care Provider] -
[2017-12-11] MEDS: Vancomycin Oral Soln 125 MG/2.5 ML UDC PO SCH ×3 (14:19→20:37)
--- NOTE | 2017-12-11 14:58 | Internal Med Progress Note ---
Hospitalist Progress Note - Encounter Date of Encounter: 12/11/17 Time of Encounter: 14:56 - Subjective Interval History: Pt seen and examined, she has no complaints. - Exam Vitals: Temp Pulse Resp BP Pulse Ox 98.1 F 93 15 143/80 92 12/11/17 12:15 12/11/17 12:15 12/11/17 12:15 12/11/17 12:15 12/11/17 12:15 Exam: PHYSICAL EXAMINATION: GENERAL APPEARANCE: The patient is alert, oriented and in no acute distress. HEENT: Head is normocephalic. The sinuses are nontender. Pupils are equal and reactive. The nares are patent. Oropharynx clear without lesions. NECK: Supple without lymphadenopathy. HEART: Regular rate and rhythm. LUNGS: No crackles or wheezes are heard. ABDOMEN: Soft, nontender, nondistended with good bowel sounds heard. Inguinal area is normal. EXTREMITIES: Without cyanosis, clubbing or edema. NEUROLOGICAL: Gross nonfocal. SKIN: Warm and dry without any rash. - Assessment and Plan (1) Hypokalemia Current Visit: Yes Status: Resolved (2) Depression Current Visit: Yes Status: Chronic Assessment and Plan: Impression patient has history of depression and probable some psychological dysfunction, She is finding it difficult to comprehend the need to stay in the hospital until she is placed in the [facility] for rehabilitation. Her past medical history is positive for anxiety bipolar and depression we will continue to monitor Her medication regimen of Lamictal and Lyrica , continue of Cymbalta and Valium (3) Weakness of lower extremity Current Visit: Yes Status: Resolved Assessment and Plan: She does continue to continue plan of leg weakness and inability to walk she is agreeable to go to [facility] for physical therapy on a long-term basis. , Neurologist was consulted and he saw the patient today. During consult he felt that the neurological examination was to be unreliable as she was not fully cooperative feels that the leg strength was at least 4+ out of 5 on both upper and lower extremities, DTRs are preserved but not brisk and there were sensory deficits in the stocking pattern thought to be due to history of peripheral neuropathy and concurrent uncontrolled diabetes. Feel that there was no significant primary neurological condition like to explain her symptoms. We will follow with his recommendations of physical therapy and plan for rehabilitation at [facility]. data services developer have been notified and are currently working on placement. . 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 Glucose today fasting was 143 POC glucose was 125 Continue with her insulin therapy and [id number] glucose is with coverage (5) DVT prophylaxis Current Visit: Yes Status: Acute Assessment and Plan: Per protocol (6) Open wound Current Visit: Yes Status: Acute Assessment and Plan: It was noted today by nursing staff that there is an open wound on the lateral portion of the left stump of the forefoot. Lesion appears to be a small abrasion approximately 1 cm with a chloride blood noted on the way. It is negative for any drainage. Does have an erythematous border. Dry sterile dressing has been applied. Consult to wound care has been made and they have advised a topical silver nitrate, with dry sterile dressing will continue with this order until healed (7) C. difficile colitis Current Visit: Yes Status: Acute Assessment and Plan: Stool positive for C. diff. Oral vanco started. contact isolation. monitor diarrhea. - Time Spent with Patient Total time spent is greater than 50% in coordination of care (as documented) at patient's floor/unit and/or counseling patient: Greater than 35 minutes Plan of Care Discussed with: patient Internal Medicine: Result - Labs CBC & Chem 7: 12/10/17 06:14 12/10/17 06:14 - Impressions Impressions Cervical Spine CT 12/10/17 11:33 IMPRESSION: No acute abnormality of the cervical spine. D/ / 12/10/2017 13:18:20 Mark Peters MD / tianna Interpreting Provider: Mark Peters MD Consult Discharge Plan - Plan Referrals: Jaron Chan DPM [Primary Care Provider] - Prescriptions: Silvasorb 1 appl TP DAILY #2 tube (2) Depression Qualifiers: Depression Type: major depressive disorder Major depression recurrence: recurrent Active/Remission status: currently active Major depression episode severity: mild Qualified Code(s): F33.0 - Major depressive disorder, recurrent , mild (3) Weakness of lower extremity Qualifiers: Laterality: bilateral Qualified Code(s): R29.898 - Other symptoms and signs involving the musculoskeletal system (4) Diabetes Qualifiers: Diabetes mellitus type: type 2 Diabetes mellitus residential insulin use: without residential use Diabetes mellitus complication status: with unspecified complications Qualified Code(s): E11.8 - Type 2 diabetes mellitus with unspecified complications
[2017-12-11] MEDS: Acetaminophen 325 MG TABLET PO PRN (20:36)
[2017-12-12 04:19] LABS: Mean Platelet Volume 9.8 fL (9.4-12.4)
[2017-12-12 04:21] LABS: Hematocrit 36.3 % (35.3-44.9); Hemoglobin 11.1 g/dL (11.5-15.4); Immature Platelets 3.9 % (1.1-6.1); Mean Corpuscular HGB Conc 30.6 g/dL (31.6-35.5); Mean Corpuscular Hemoglobin 25.3 pg (28.0-33.3); Mean Corpuscular Volume 82.9 fL (83.0-100.0); Red Blood Count 4.38 M/mcL (3.82-4.97)
[2017-12-12 04:36] LABS: BUN/Creatinine Ratio 10 (6-26); Blood Urea Nitrogen 8 mg/dL (6-20); Calcium 8.9 mg/dL (8.6-10.3); Carbon Dioxide 31 mEq/L (23-29); Chloride 105 mEq/L (98-107); Glucose 125 mg/dL (70-105); Osmolality,Calculated 292 (280-300); Potassium 3.5 mEq/L (3.5-5.1); Sodium 141 mEq/L (136-145); eGFR For Non-African Americans > 60 (> 60)
[2017-12-12] MEDS: *HR* Heparin 5,000 UNIT/ML VIAL SQ SCH ×3 (05:19→22:15)
[2017-12-12] MEDS: Insulin LISPRO 300 UNITS/3 ML VIAL SQ SCH ×3 (08:53→16:27)
[2017-12-12] MEDS: lamoTRIgine 100 MG TABLET PO SCH ×2 (09:55→22:14)
[2017-12-12] MEDS: Vancomycin Oral Soln 125 MG/2.5 ML UDC PO SCH ×4 (09:55→22:14)
[2017-12-12] MEDS: diazePAM 5 MG TABLET PO SCH ×3 (09:55→22:14)
[2017-12-12] MEDS: Pregabalin 75 MG CAPSULE PO SCH ×2 (09:55→22:14)
[2017-12-12] MEDS: Silvasorb 44.4 ML TUBE TP SCH (09:56)
--- NOTE | 2017-12-12 11:26 | Internal Med Progress Note ---
Hospitalist Progress Note - Encounter Date of Encounter: 12/12/17 Time of Encounter: 11:23 - Subjective Interval History: Pt seen and examined, she has no complaints. She reported improved diarrhea, just wants to leave this place and go home. - Exam Vitals: Temp Pulse Resp BP Pulse Ox 97.8 F 76 16 121/79 96 12/12/17 06:32 12/12/17 06:32 12/12/17 06:32 12/12/17 06:32 12/12/17 09:45 Exam: General: Alert and oriented Skin:Normal color, no rash, no lesions. HEENT:EOM, pupils equal, round and reactive. Cardiovascular:Normal S1 & S2, no rubs, murmurs or gallops. No JVD. Pulse regular. Lungs:Normal breath sounds, no wheezes or crackles. Abdomen:Soft, non-tender, no rigidity. Extremities:No deformity, no edema or tenderness, no joint swelling or clubbing. Neurological:Normal cognition and motor skills. Pulses:Carotid and radial pulses normal +2. Rest of the physical exam is non contributory - Assessment and Plan (1) Hypokalemia Current Visit: Yes Status: Resolved (2) Depression Current Visit: Yes Status: Chronic Assessment and Plan: Continue antidepressants. (3) Diabetes Current Visit: Yes Status: Chronic Assessment and Plan: Blood glucose checks. Sliding scale insulin. (4) C. difficile colitis Current Visit: Yes Status: Acute Assessment and Plan: Stool positive for C. diff. Oral vanco started. contact isolation. diarrhea improved, anticipate discharge next week.. (5) Weakness Current Visit: Yes Status: Acute Assessment and Plan: She does continue to continue plan of leg weakness and inability to walk she is agreeable to go to [facility] for physical therapy on a long-term basis. , Neurologist was consulted and he saw the patient today. During consult he felt that the neurological examination was to be unreliable as she was not fully cooperative feels that the leg strength was at least 4+ out of 5 on both upper and lower extremities, DTRs are preserved but not brisk and there were sensory deficits in the stocking pattern thought to be due to history of peripheral neuropathy and concurrent uncontrolled diabetes. Feel that there was no significant primary neurological condition like to explain her symptoms. We will follow with his recommendations of physical therapy and plan for rehabilitation at [facility]. web services manager have been notified and are currently working on placement. (6) DVT prophylaxis Current Visit: Yes Status: Acute Assessment and Plan: Subcutaneous heparin - Summary of Assessment and Plan Summary of Assessment and Plan: Mrs. Mejia is a 52-year-old female patient to entered through the emergency room with chief complaint of weakness unable to walk. He has long-standing history of uncontrolled diabetes and foot ulcers with partial amputation of both the left and right. Today she was evaluated per neurology Dr. Koch, and he feels that there is no neurological deficit that would account for her leg weakness and inability to walk. He has recommended physical therapy and patient is willing to do that as an inpatient as long as she goes to [facility]. web services manager has been contacted and consulted and they are working active finding her placement in her home. Today she was found to have a small abrasion per nursing staff on the left foot stump, wound clinic was consulted and advised us of her nitrate dressings until healed. - Time Spent with Patient Total time spent is greater than 50% in coordination of care (as documented) at patient's floor/unit and/or counseling patient: Greater than 35 minutes Plan of Care Discussed with: patient Internal Medicine: Result - Labs CBC & Chem 7: 12/12/17 04:00 12/12/17 04:00 Labs: Short CBC 12/12/17 Range/Units 04:00 WBC 3.0 L (4.3-11.1) K/mcL Hgb 11.1 L (11.5-15.4) g/dL Hct 36.3 (35.3-44.9) % Plt Count 48 L (140-400) K/mcL BMP 12/12/17 04:00 Sodium 141 Potassium 3.5 Chloride 105 Carbon Dioxide 31 H BUN 8 Creatinine 0.80 Glucose 125 H Calcium 8.9 Consult Discharge Plan - Plan Referrals: Jaron Chan DPM [Primary Care Provider] - (2) Depression Qualifiers: Depression Type: major depressive disorder Major depression recurrence: recurrent Active/Remission status: currently active Major depression episode severity: mild Qualified Code(s): F33.0 - Major depressive disorder, recurrent , mild (3) Diabetes Qualifiers: Diabetes mellitus type: type 2 Diabetes mellitus long chain beamer insulin use: without long chain beamer use Diabetes mellitus complication status: with unspecified complications Qualified Code(s): E11.8 - Type 2 diabetes mellitus with unspecified complications
[2017-12-13] MEDS: *HR* Heparin 5,000 UNIT/ML VIAL SQ SCH ×3 (04:59→21:06)
[2017-12-13 05:12] LABS: Eosinophils % 1.8 %; Hemoglobin 11.6 g/dL (11.5-15.4); Immature Granulocytes % 0.6 % (0-4); Mean Corpuscular Volume 82.2 fL (83.0-100.0); Red Cell Distribution Width 16.8 % (11.5-14.5)
[2017-12-13 05:14] LABS: Basophils % 0.3 %; Eosinophils # 0.1 K/mcL (0.0-0.6); Hematocrit 37.9 % (35.3-44.9); Immature Platelets 3.8 % (1.1-6.1); Lymphocytes # 0.7 K/mcL (0.6-4.6); Lymphocytes % 21.3 %; Mean Corpuscular HGB Conc 30.6 g/dL (31.6-35.5); Mean Corpuscular Hemoglobin 25.2 pg (28.0-33.3); Mean Platelet Volume 9.9 fL (9.4-12.4); Monocytes # 0.2 K/mcL (0.0-1.3); Monocytes % 6.4 %; Neutrophils # 2.3 K/mcL (1.6-8.9); Platelet Count 53 K/mcL (140-400); Red Blood Count 4.61 M/mcL (3.82-4.97); Segmented Neutrophils % 69.6 %
[2017-12-13 05:30] LABS: BUN/Creatinine Ratio 10 (6-26); Blood Urea Nitrogen 7 mg/dL (6-20); Calcium 9.1 mg/dL (8.6-10.3); Carbon Dioxide 30 mEq/L (23-29); Chloride 103 mEq/L (98-107); Glucose 139 mg/dL (70-105); Osmolality,Calculated 290 (280-300); Potassium 3.6 mEq/L (3.5-5.1); Sodium 140 mEq/L (136-145); eGFR For Non-African Americans > 60 (> 60)
--- NOTE | 2017-12-13 09:19 | Internal Med Progress Note ---
Hospitalist Progress Note - Encounter Date of Encounter: 12/13/17 Time of Encounter: 09:18 - Subjective Interval History: Pt seen and examined, she has no complaints. She reported improved diarrhea, just wants to leave this place and go home. - Exam Vitals: Temp Pulse Resp BP Pulse Ox 98.1 F 80 16 115/78 94 12/13/17 07:23 12/13/17 07:23 12/13/17 07:23 12/13/17 07:23 12/13/17 07:23 Exam: General: Alert and oriented Skin:Normal color, no rash, no lesions. HEENT:EOM, pupils equal, round and reactive. Cardiovascular:Normal S1 & S2, no rubs, murmurs or gallops. No JVD. Pulse regular. Lungs:Normal breath sounds, no wheezes or crackles. Abdomen:Soft, non-tender, no rigidity. Extremities:No deformity, no edema or tenderness, no joint swelling or clubbing. Neurological:Normal cognition and motor skills. Pulses:Carotid and radial pulses normal +2. Rest of the physical exam is non contributory - Assessment and Plan (1) Hypokalemia Current Visit: Yes Status: Resolved (2) Depression Current Visit: Yes Status: Chronic Assessment and Plan: Continue antidepressants. (3) Diabetes Current Visit: No Status: Chronic Assessment and Plan: Blood glucose checks. Sliding scale insulin. (4) C. difficile colitis Current Visit: Yes Status: Acute Assessment and Plan: Stool positive for C. diff. Oral vanco started. contact isolation. diarrhea improved, anticipate discharge next week.. (5) Weakness Current Visit: Yes Status: Acute Assessment and Plan: She does continue to continue plan of leg weakness and inability to walk she is agreeable to go to [facility] for physical therapy on a long-term basis. , Neurologist was consulted and he saw the patient today. During consult he felt that the neurological examination was to be unreliable as she was not fully cooperative feels that the leg strength was at least 4+ out of 5 on both upper and lower extremities, DTRs are preserved but not brisk and there were sensory deficits in the stocking pattern thought to be due to history of peripheral neuropathy and concurrent uncontrolled diabetes. Feel that there was no significant primary neurological condition like to explain her symptoms. We will follow with his recommendations of physical therapy and plan for rehabilitation at [facility]. reference services head have been notified and are currently working on placement. (6) DVT prophylaxis Current Visit: Yes Status: Acute Assessment and Plan: Subcutaneous heparin - Time Spent with Patient Total time spent is greater than 50% in coordination of care (as documented) at patient's floor/unit and/or counseling patient: Greater than 35 minutes Plan of Care Discussed with: patient Internal Medicine: Result - Labs CBC & Chem 7: 12/13/17 05:00 12/13/17 05:00 Labs: Short CBC 12/13/17 Range/Units 05:00 WBC 3.3 L (4.3-11.1) K/mcL Hgb 11.6 (11.5-15.4) g/dL Hct 37.9 (35.3-44.9) % Plt Count 53 L (140-400) K/mcL Neutrophils # 2.3 (1.6-8.9) K/mcL BMP 12/13/17 05:00 Sodium 140 Potassium 3.6 Chloride 103 Carbon Dioxide 30 H BUN 7 Creatinine 0.68 Glucose 139 H Calcium 9.1 Consult Discharge Plan - Plan Referrals: Jaron Chan DPM [Primary Care Provider] - (2) Depression Qualifiers: Depression Type: major depressive disorder Major depression recurrence: recurrent Active/Remission status: currently active Major depression episode severity: mild Qualified Code(s): F33.0 - Major depressive disorder, recurrent , mild (3) Diabetes Qualifiers: Diabetes mellitus type: type 2 Diabetes mellitus ferry terminal agent insulin use: without mcc use Diabetes mellitus complication status: with unspecified complications Qualified Code(s): E11.8 - Type 2 diabetes mellitus with unspecified complications
[2017-12-13] MEDS: Insulin LISPRO 300 UNITS/3 ML VIAL SQ SCH ×3 (09:22→17:34)
[2017-12-13] MEDS: Vancomycin Oral Soln 125 MG/2.5 ML UDC PO SCH ×4 (09:54→21:04)
[2017-12-13] MEDS: lamoTRIgine 100 MG TABLET PO SCH ×2 (09:54→21:04)
[2017-12-13] MEDS: Pregabalin 75 MG CAPSULE PO SCH ×2 (09:54→21:05)
[2017-12-13] MEDS: Silvasorb 44.4 ML TUBE TP SCH (09:55)
[2017-12-13] MEDS: diazePAM 5 MG TABLET PO SCH ×3 (09:55→21:05)
--- NOTE | 2017-12-13 20:43 | Electrocardiograph Report ---
[place] [id number] Test Date: 2017-12-09 Pat Name: Yahir Mejia Department: EXAM4 Room: 3B12 Gender: F Treating Engineer Helper: : 1965 Requested By: Cris Jain Order Number: [id number] Reading MD: Vaughn Herrera Measurements Intervals [place] Rate: 85 P: [place]: QRS: 63 QRSD: 96 T: 38 QT: 420 QTc: 500 Interpretive Statements Sinus rhythm Nonspecific ST-T changes Prolonged QT interval Electronically Signed On 12-13-2017 20:42:04 EDT by Vaughn Herrera
[2017-12-13] MEDS: Acetaminophen 325 MG TABLET PO PRN (22:53)
[2017-12-14] MEDS: *HR* Heparin 5,000 UNIT/ML VIAL SQ SCH (06:02)
[2017-12-14 06:25] LABS: Basophils % 0.3 %; Eosinophils % 1.1 %; Hemoglobin 12.1 g/dL (11.5-15.4); Immature Granulocytes % 0.8 % (0-4); Immature Platelets 4.1 % (1.1-6.1); Lymphocytes # 0.8 K/mcL (0.6-4.6); Lymphocytes % 22.1 %; Mean Corpuscular Hemoglobin 25.4 pg (28.0-33.3); Mean Corpuscular Volume 81.9 fL (83.0-100.0); Mean Platelet Volume 9.6 fL (9.4-12.4); Monocytes # 0.3 K/mcL (0.0-1.3); Monocytes % 7.3 %; Neutrophils # 2.5 K/mcL (1.6-8.9); Red Blood Count 4.76 M/mcL (3.82-4.97); Red Cell Distribution Width 16.8 % (11.5-14.5); Segmented Neutrophils % 68.4 %
[2017-12-14 06:37] LABS: Platelet Count 53 K/mcL (140-400)
[2017-12-14 07:03] LABS: BUN/Creatinine Ratio 9 (6-26); Blood Urea Nitrogen 6 mg/dL (6-20); Calcium 9.1 mg/dL (8.6-10.3); Carbon Dioxide 31 mEq/L (23-29); Chloride 102 mEq/L (98-107); Glucose 163 mg/dL (70-105); Osmolality,Calculated 289 (280-300); Potassium 3.4 mEq/L (3.5-5.1); Sodium 139 mEq/L (136-145); eGFR For Non-African Americans > 60 (> 60)
[2017-12-14 07:31] VITALS: BP 106/65
[2017-12-14] MEDS: Pregabalin 75 MG CAPSULE PO SCH (08:24)
[2017-12-14] MEDS: diazePAM 5 MG TABLET PO SCH (08:24)
[2017-12-14] MEDS: Vancomycin Oral Soln 125 MG/2.5 ML UDC PO SCH (08:25)
[2017-12-14] MEDS: Insulin LISPRO 300 UNITS/3 ML VIAL SQ SCH (08:27)
--- NOTE | 2017-12-14 09:16 | Discharge Summary ---
- NOTES TO OUTPATIENT PROVIDER Notes to Outpatient Provider: f/u with PCP withia 3 weeks after finishing the oral antibiotics. Date of Encounter: 12/14/17 Time of Encounter: 09:12 - Discharge Diagnosis (1) Hypokalemia Priority: Primary Status: Resolved (2) Depression Priority: Secondary Status: Chronic Qualifiers: Depression Type: major depressive disorder Major depression recurrence: recurrent Active/Remission status: currently active Major depression episode severity: mild Qualified Code(s): F33.0 - Major depressive disorder, recurrent, mild (3) Diabetes Priority: Secondary Status: Chronic Qualifiers: Diabetes mellitus type: type 2 Diabetes mellitus dance hall hostess insulin use: without dance hall hostess use Diabetes mellitus complication status: with unspecified complications Qualified Code(s): E11.8 - Type 2 diabetes mellitus with unspecified complications (4) C. difficile colitis Priority: Primary Status: Acute (5) Weakness Priority: Primary Status: Acute (6) DVT prophylaxis Priority: Primary Status: Acute Hospital course: Ms. Mejia is a 52 year old female with a past medical history of poorly controlled diabetes status post bilateral forefoot amputation who presents to the ED complaining of lower extremity weakness. she tried to get out of bed but felt too weak to stand up and fell to the floor. She reports falling several times today including while trying to use the bathroom, however, denies syncope. Patient however states that at baseline she has difficulty getting out of bed and often requires the assistance of her sister to do so. When asked why she attempted to get out of bed without the aid of her sister, she states she should have waited. Patient reports history of falls over the past year on and off. However, she feels that this morning she noted diminished sensation in her feet and that her legs seemed to buckle more than usual. She also did note some lightheadedness. Patient reports a history of reflex sympathetic dystrophy which was diagnosed relatively recently around the same time of her bilateral foot amputations. Upon arrival, labs revealed hypokalemia, which was replaced. X-ray of foot and right shoulder reveals no fracture. CT of cervical spine and lumbar spine revealed degenerative changes. Neurology was consulted, physical therapy was recommended. Bring the hospital stay, patient developed watery diarrhea, lab test was positive for C. difficile toxin, oral vancomycin was started. Patient has received a 3 day of oral antibiotics, she currently has no diarrhea. Patient will be discharged home with home health care today. She was instructed to continue taking oral vancomycin for another 2 weeks. She was instructed to follow-up with PCP after completing oral antibiotics. Discharge discussed with: patient, family Time spent discussing smoking cessation with patient: more than 10 minutes - Time Spent with Patient Total time spent providing and/or coordinating discharge services: Greater than 30 minutes - Discharge Medications Prescriptions: Vancomycin Oral Soln [Firvanq] 125 mg PO QID #60 udc Home Medications: diazePAM [Valium] 5 mg PO TID 02/28/17 [History] lamoTRIgine [Lamictal] 200 mg PO BID 02/28/17 [History] metFORMIN [Glucophage] 500 mg PO BID 02/28/17 [History] Iloperidone [Fanapt] 4 mg PO BID 03/18/17 [History] Benztropine Mesylate 2 mg PO DAILY 12/09/17 [History] DULoxetine [Cymbalta] 20 mg PO DAILY 12/09/17 [History] OxyCODONE Immed Rel [Roxicodone 10 MG] 10 mg PO Q8H 12/09/17 [History] Pregabalin [Lyrica] 150 mg PO BID 12/09/17 [History] Silvasorb 1 appl TP DAILY #2 tube 12/11/17 [Rx] Vancomycin Oral Soln [Firvanq] 125 mg PO QID #60 udc 12/14/17 [Rx] Allergies/Adverse Reactions: 3 Allergy/AdvReac Type Severity Reaction Status Date / Time carbamazepine [From Tegretol] Allergy See Verified 03/20/17 14:28 Comments Date of admission: 12/11/17 16:45 Primary care physician: Jaron Chan, Anticipated date of discharge: 12/14/17 - Constitutional Vitals: Temp Pulse Resp BP Pulse Ox 98.1 F 81 16 106/65 97 12/14/17 07:30 12/14/17 07:30 12/14/17 07:30 12/14/17 07:30 12/14/17 07:30 General appearance: Present: cooperative, A&O X 3, answers questions appropriately Exam: General: Alert and oriented Skin:Normal color, no rash, no lesions. HEENT:EOM, pupils equal, round and reactive. Cardiovascular:Normal S1 & S2, no rubs, murmurs or gallops. No JVD. Pulse regular. Lungs:Normal breath sounds, no wheezes or crackles. Abdomen:Soft, non-tender, no rigidity. Extremities:No deformity, no edema or tenderness, no joint swelling or clubbing. Neurological:Normal cognition and motor skills. Pulses:Carotid and radial pulses normal +2. Rest of the physical exam is non contributory - Patient Status Disposition: Home Health Service Condition: Good Functional capacity at discharge: independent ambulation Overall status at discharge: patient is progressing back to baseline - Discharge Instructions Follow Up With: Jaron Chan DPM [Primary Care Provider] - - Diet and Activity Activity: increase activity as tolerated Diet: diabetic diet
[2017-12-14] MEDS: lamoTRIgine 100 MG TABLET PO SCH (09:19)
--- NOTE | 2017-12-14 09:19 | Physician Discharge Referral ---
Home Health/Hosp Referral Info Transfer to: Home Health Provider in Charge Post Discharge: PCP - Diagnosis (1) Hypokalemia Priority: Primary Status: Resolved (2) Depression Priority: Secondary Status: Chronic (3) Diabetes Priority: Secondary Status: Chronic (4) C. difficile colitis Priority: Primary Status: Acute (5) Weakness Priority: Primary Status: Acute (6) DVT prophylaxis Priority: Primary Status: Acute - Respiratory Orders Smoking Cessation: Smoking cessation has been advised. For more information, call the [place] [employer] Quit Line at 9-762-KUAT-NOW. - Diet/Nutrition Diet/Nutrition Orders: No Concentrated Sweets - Activity Activity Orders: Up ad panchito - Services Needed Following services are medically necessary services: Nursing, Physical Therapy, Occupational Therapy - Transfer Medications Prescriptions: Vancomycin Oral Soln [Firvanq] 125 mg PO QID #60 udc Home Medications: diazePAM [Valium] 5 mg PO TID 02/28/17 [History] lamoTRIgine [Lamictal] 200 mg PO BID 02/28/17 [History] metFORMIN [Glucophage] 500 mg PO BID 02/28/17 [History] Iloperidone [Fanapt] 4 mg PO BID 03/18/17 [History] Benztropine Mesylate 2 mg PO DAILY 12/09/17 [History] DULoxetine [Cymbalta] 20 mg PO DAILY 12/09/17 [History] OxyCODONE Immed Rel [Roxicodone 10 MG] 10 mg PO Q8H 12/09/17 [History] Pregabalin [Lyrica] 150 mg PO BID 12/09/17 [History] Silvasorb 1 appl TP DAILY #2 tube 12/11/17 [Rx] Vancomycin Oral Soln [Firvanq] 125 mg PO QID #60 udc 12/14/17 [Rx] Allergies/Adverse Reactions: 3 Allergy/AdvReac Type Severity Reaction Status Date / Time carbamazepine [From Tegretol] Allergy See Verified 03/20/17 14:28 Comments Certification: Further, I certify that my clinical findings support that this patient is homebound (i.e. absences from home require considerable and taxing effort and are for medical reasons or yarsanism services or infrequently or short duration when for other reasons) because: Homebound Reason: Patient requires assistance of a person or device to safely leave home Attestation: My signature below is to certify that this patient is under my care and that I, or nurse practitioner, or a physician's technical staff assistant working with me, has a face-to -face encounter with this patient.
== END 2017-12-14 10:30 | disposition home health service (06) | DRG 605 ==
LOC: 3BNU 17:40 → EMEROOARM 17:40 → 3BNU 22:46
PROVIDERS: ADMIT Internal Medicine; ATTEND Internal Medicine

== ENCOUNTER 2020-10-22 17:20 | Observation (INO) ==
[2020-10-22] MEDS ORDERED: Acetaminophen 325 MG TABLET PO PRN (23:14)
[2020-10-22] MEDS ORDERED: Ondansetron ODT 4 MG TAB.RAPDIS SL PRN (23:14)
[2020-10-22] MEDS ORDERED: Naloxone 0.4 MG/ML INJ IVP PRN (23:14)
[2020-10-22] MEDS ORDERED: D5% in Water 1,000 ML IVC PRN (23:19)
[2020-10-22] MEDS ORDERED: Dextrose Gel 15 GM/37.5 ML TUBE PO PRN ×2 (23:19)
[2020-10-22] MEDS ORDERED: *HR* Dextrose 50 % in Water (Vial) 50 ML VIAL IVP PRN (23:19)
[2020-10-23] MEDS: Insulin LISPRO 300 UNITS/3 ML VIAL SUBQ SCH ×2 (00:14→08:00)
[2020-10-23] MEDS: Piperacillin/Tazobactam 3.375 GM in 0.9 % Sodium Chloride Mini Bag 100 ML IVPB SCH ×2 (00:42→09:33)
[2020-10-23] MEDS: 0.9 % Sodium Chloride 1,000 ML IVC SCH ×2 (00:42→11:40)
[2020-10-23 01:05] LABS: Bilirubin,Urine Negative (Negative); Blood,Urine Negative (Negative); Clarity,Urine Clear (Clear); Color,Urine Colorless (Yellow); Glucose,Urine (UA) Normal (Normal); Ketones,Urine Negative (Negative); Leukocyte Esterase,Urine Negative (Negative); Nitrite,Urine Negative (Negative); PH,Urine 6.5 pH Units (5.0-8.0); Protein,Urine Negative (Neg-Trace); Specific Gravity,Urine 1.006 (1.010-1.025); Urobilinogen,Urine Normal (Normal)
[2020-10-23 01:18] LABS: Alanine Aminotransferase 12 Units/L (7-52); Albumin 3.4 g/dL (3.5-5.7); Albumin/Globulin Ratio 1.4 (1.1-2.2); Alkaline Phosphatase 56 Units/L (34-104); Aspartate Amino Transferase 21 Units/L (13-39); BUN/Creatinine Ratio 18 (6-26); Bilirubin,Total 0.3 mg/dL (0.3-1.0); Blood Urea Nitrogen 12 mg/dL (6-20); C-Reactive Protein 6 mg/L (Less than 10); Calcium 8.8 mg/dL (8.6-10.3); Carbon Dioxide 23 mEq/L (23-29); Chloride 106 mEq/L (98-107); Globulin 2.4 g/dL (2.4-3.5); Glucose 128 mg/dL (70-105); Magnesium 1.7 mg/dL (1.6-2.6); Osmolality,Calculated 287 (280-300); Potassium 4.3 mEq/L (3.5-5.1); Sodium 138 mEq/L (136-145); Total Protein 5.8 g/dL (6.4-8.9); eGFR For African Americans > 60 (> 60); eGFR For Non-African Americans > 60 (> 60)
[2020-10-23 02:47] LABS: INR 1.1; Prothrombin Time 12.4 Seconds (9.4-12.1)
[2020-10-23 03:59] VITALS: O2SAT 97
[2020-10-23] MEDS ORDERED: Vancomycin 1,500 MG/265 ML IV.SOLN IVPB SCH (04:00)
[2020-10-23 06:48] VITALS: BP 131/72; PULSE 76; TEMP 98.8
[2020-10-23 08:33] LABS: Basophils % 0.6 %; Eosinophils # 0.1 K/mcL (0.0-0.6); Eosinophils % 2.2 %; Hematocrit 37.6 % (35.3-44.9); Hemoglobin 11.6 g/dL (11.5-15.4); Immature Granulocytes % 0.6 % (0-4); Lymphocytes # 0.9 K/mcL (0.6-4.6); Lymphocytes % 28.5 %; Mean Corpuscular HGB Conc 30.9 g/dL (31.6-35.5); Mean Corpuscular Hemoglobin 25.1 pg (28.0-33.3); Mean Corpuscular Volume 81.2 fL (83.0-100.0); Mean Platelet Volume 9.1 fL (9.4-12.4); Monocytes # 0.4 K/mcL (0.0-1.3); Neutrophils # 1.8 K/mcL (1.6-8.9); Red Blood Count 4.63 M/mcL (3.82-4.97); Red Cell Distribution Width 16.9 % (11.5-14.5); Segmented Neutrophils % 55.1 %; White Blood Count 3.2 K/mcL (4.3-11.1)
[2020-10-23 08:34] LABS: Platelet Count 57 K/mcL (140-400)
[2020-10-23 08:56] LABS: Estimated Average Glucose 166 mg/dl; Hemoglobin A1C 7.4 %
== END 2020-10-23 13:02 | disposition home or self-care (01) ==
LOC: 3BNU → SUATTDRO 23:03
PROVIDERS: ADMIT Internal Medicine; ATTEND Registered Nurse

== ENCOUNTER 2021-02-02 08:15 | Inpatient (IN) ==
[2021-02-02] MEDS ORDERED: Naloxone 0.4 MG/ML INJ IVP PRN (10:34)
[2021-02-02] MEDS ORDERED: Ondansetron 4 MG/2 ML VIAL IVP PRN (10:34)
[2021-02-02] MEDS ORDERED: Acetaminophen 325 MG TABLET PO PRN (10:34)
[2021-02-02] MEDS ORDERED: *HR* Dextrose 50 % in Water (Syg) 50 ML SYRINGE IVP PRN (10:37)
[2021-02-02] MEDS ORDERED: D5% in Water 1,000 ML IVC PRN (10:37)
[2021-02-02] MEDS ORDERED: Dextrose Gel 15 GM/37.5 ML TUBE PO PRN ×2 (10:37)
[2021-02-02 11:37] LABS: Basophils % 0.2 %; Eosinophils # 0.1 K/mcL (0.0-0.6); Eosinophils % 2.5 %; Hematocrit 36.2 % (35.3-44.9); Hemoglobin 10.9 g/dL (11.5-15.4); Immature Granulocytes % 0.5 % (0-4); Lymphocytes % 19.3 %; Mean Corpuscular HGB Conc 30.1 g/dL (31.6-35.5); Mean Corpuscular Hemoglobin 24.7 pg (28.0-33.3); Mean Corpuscular Volume 81.9 fL (83.0-100.0); Mean Platelet Volume 9.6 fL (9.4-12.4); Monocytes # 0.4 K/mcL (0.0-1.3); Monocytes % 9.7 %; Red Blood Count 4.42 M/mcL (3.82-4.97); Red Cell Distribution Width 17.1 % (11.5-14.5); Segmented Neutrophils % 67.8 %; White Blood Count 4.4 K/mcL (4.3-11.1)
[2021-02-02 11:39] LABS: Lymphocytes # 0.9 K/mcL (0.6-4.6); Platelet Count 66 K/mcL (140-400)
[2021-02-02 11:45] LABS: INR 1.1; Prothrombin Time 12.2 Seconds (9.4-12.1)
[2021-02-02 11:58] LABS: BUN/Creatinine Ratio 14 (6-26); Blood Urea Nitrogen 9 mg/dL (6-20); Calcium 8.4 mg/dL (8.6-10.3); Carbon Dioxide 22 mEq/L (23-29); Chloride 103 mEq/L (98-107); Glucose 265 mg/dL (70-105); Osmolality,Calculated 286 (280-300); Potassium 3.7 mEq/L (3.5-5.1); Sodium 134 mEq/L (136-145); eGFR For African Americans > 60 (> 60); eGFR For Non-African Americans > 60 (> 60)
[2021-02-02] MEDS: Ampicillin/Sulbactam 3,000 MG in 0.9 % Sodium Chloride Mini Bag 100 ML IVPB SCH ×2 (12:40→17:39)
[2021-02-02] MEDS: Insulin LISPRO 300 UNITS/3 ML VIAL SUBQ SCH ×2 (12:41→17:41)
[2021-02-02] MEDS ORDERED: Lidocaine -MPF 1% 5 ML AMPUL INFILT ONE (12:45)
[2021-02-02] MEDS: *HR* OxyCODONE Immed Rel 5 MG TABLET PO PRN ×3 (12:48→22:42)
[2021-02-02] MEDS ORDERED: *HR* HYDROmorphone (PF) 1 MG/ML SYRINGE IVP ONE (13:55)
[2021-02-02] MEDS: Vancomycin 1,250 MG/262.5 ML IV.SOLN IVPB SCH (14:38)
[2021-02-02] MEDS: Insulin DETEMIR 100 UNIT/ML X5UNITS SUBQ SCH (20:24)
[2021-02-03] MEDS: Insulin LISPRO 300 UNITS/3 ML VIAL SUBQ SCH ×4 (01:09→17:56)
[2021-02-03] MEDS: Ampicillin/Sulbactam 3,000 MG in 0.9 % Sodium Chloride Mini Bag 100 ML IVPB SCH ×4 (01:12→20:03)
[2021-02-03] MEDS: *HR* OxyCODONE Immed Rel 5 MG TABLET PO PRN ×5 (01:31→23:55)
[2021-02-03] MEDS: Vancomycin 1,250 MG/262.5 ML IV.SOLN IVPB SCH ×2 (03:06→14:55)
[2021-02-03] MEDS: *HR* Enoxaparin 40 MG/0.4 ML SYRINGE SQ SCH (06:24)
[2021-02-03] MEDS: Insulin DETEMIR 100 UNIT/ML X5UNITS SUBQ SCH (07:59)
[2021-02-03] MEDS: ALPRAZolam 0.25 MG TABLET PO SCH (21:04)
[2021-02-03] MEDS: lamoTRIgine 100 MG TABLET PO SCH (21:06)
[2021-02-03] MEDS: Divalproex (12 HR) 500 MG TABLET PO SCH (21:06)
[2021-02-04] MEDS: Insulin LISPRO 300 UNITS/3 ML VIAL SUBQ SCH ×5 (00:45→21:43)
[2021-02-04] MEDS: Ampicillin/Sulbactam 3,000 MG in 0.9 % Sodium Chloride Mini Bag 100 ML IVPB SCH ×3 (01:01→15:04)
[2021-02-04 01:31] LABS: Monocytes % 11.6 %
[2021-02-04 01:33] LABS: Basophils % 0.3 %; Eosinophils # 0.1 K/mcL (0.0-0.6); Eosinophils % 3.7 %; Immature Granulocytes % 0.7 % (0-4); Immature Platelets 1.6 % (1.1-6.1); Lymphocytes # 0.8 K/mcL (0.6-4.6); Lymphocytes % 26.2 %; Mean Corpuscular HGB Conc 29.4 g/dL (31.6-35.5); Mean Corpuscular Hemoglobin 24.2 pg (28.0-33.3); Mean Corpuscular Volume 82.1 fL (83.0-100.0); Mean Platelet Volume 9.1 fL (9.4-12.4); Monocytes # 0.4 K/mcL (0.0-1.3); Neutrophils # 1.7 K/mcL (1.6-8.9); Red Blood Count 4.14 M/mcL (3.82-4.97); Red Cell Distribution Width 16.9 % (11.5-14.5); Segmented Neutrophils % 57.5 %
[2021-02-04 01:35] LABS: Platelet Count 71 K/mcL (140-400)
[2021-02-04 01:50] LABS: BUN/Creatinine Ratio 19 (6-26); Blood Urea Nitrogen 12 mg/dL (6-20); Calcium 8.3 mg/dL (8.6-10.3); Carbon Dioxide 27 mEq/L (23-29); Chloride 103 mEq/L (98-107); Glucose 230 mg/dL (70-105); Magnesium 1.8 mg/dL (1.6-2.6); Osmolality,Calculated 293 (280-300); Phosphorous 3.1 mg/dL (2.7-4.5); Potassium 3.6 mEq/L (3.5-5.1); Sodium 138 mEq/L (136-145); eGFR For African Americans > 60 (> 60); eGFR For Non-African Americans > 60 (> 60)
[2021-02-04] MEDS: *HR* OxyCODONE Immed Rel 5 MG TABLET PO PRN ×3 (02:44→15:53)
[2021-02-04] MEDS: Vancomycin 1,250 MG/262.5 ML IV.SOLN IVPB SCH (02:50)
[2021-02-04] MEDS: Vancomycin 1,500 MG/265 ML IV.SOLN IVPB SCH ×2 (03:40→15:49)
[2021-02-04] MEDS: *HR* Enoxaparin 40 MG/0.4 ML SYRINGE SQ SCH (06:05)
[2021-02-04] MEDS: Divalproex (12 HR) 500 MG TABLET PO SCH ×2 (07:46→21:43)
[2021-02-04] MEDS: ALPRAZolam 0.25 MG TABLET PO SCH ×2 (07:46→21:43)
[2021-02-04] MEDS: OLANZapine 10 MG TAB.RAPDIS PO SCH (07:47)
[2021-02-04] MEDS: lamoTRIgine 100 MG TABLET PO SCH ×2 (07:47→21:43)
[2021-02-04] MEDS ORDERED: DULOXETINE HCL 60 MG PO SCH (09:00)
[2021-02-04] MEDS: Insulin DETEMIR 100 UNIT/ML X5UNITS SUBQ SCH (09:23)
[2021-02-04] MEDS: Lactobacillus 1 EACH CAP.SPRINK PO SCH ×2 (15:04→21:43)
[2021-02-05] MEDS: Vancomycin 1,500 MG/265 ML IV.SOLN IVPB SCH ×2 (04:54→17:40)
[2021-02-05] MEDS: *HR* Enoxaparin 40 MG/0.4 ML SYRINGE SQ SCH (04:55)
[2021-02-05 07:35] LABS: Basophils % 0.4 %; Red Cell Distribution Width 16.6 % (11.5-14.5)
[2021-02-05 07:36] LABS: Eosinophils # 0.1 K/mcL (0.0-0.6); Eosinophils % 3.7 %; Hematocrit 33.5 % (35.3-44.9); Immature Granulocytes % 0.8 % (0-4); Immature Platelets 1.8 % (1.1-6.1); Lymphocytes # 0.9 K/mcL (0.6-4.6); Lymphocytes % 35.4 %; Mean Corpuscular HGB Conc 29.9 g/dL (31.6-35.5); Mean Corpuscular Hemoglobin 24.4 pg (28.0-33.3); Mean Corpuscular Volume 81.9 fL (83.0-100.0); Mean Platelet Volume 9.7 fL (9.4-12.4); Monocytes # 0.2 K/mcL (0.0-1.3); Monocytes % 9.5 %; Neutrophils # 1.2 K/mcL (1.6-8.9); Red Blood Count 4.09 M/mcL (3.82-4.97); Segmented Neutrophils % 50.2 %; White Blood Count 2.4 K/mcL (4.3-11.1)
[2021-02-05 07:50] LABS: Platelet Count 74 K/mcL (140-400)
[2021-02-05] MEDS: OLANZapine 10 MG TAB.RAPDIS PO SCH (07:52)
[2021-02-05] MEDS: Lactobacillus 1 EACH CAP.SPRINK PO SCH ×2 (07:54→21:02)
[2021-02-05] MEDS: Divalproex (12 HR) 500 MG TABLET PO SCH ×2 (07:55→21:02)
[2021-02-05] MEDS: lamoTRIgine 100 MG TABLET PO SCH ×2 (07:55→21:08)
[2021-02-05] MEDS: ALPRAZolam 0.25 MG TABLET PO SCH ×2 (07:56→21:02)
[2021-02-05] MEDS: Insulin DETEMIR 100 UNIT/ML X5UNITS SUBQ SCH (08:05)
[2021-02-05] MEDS: Insulin LISPRO 300 UNITS/3 ML VIAL SUBQ SCH ×4 (08:05→20:59)
[2021-02-05] MEDS: *HR* OxyCODONE Immed Rel 5 MG TABLET PO PRN ×2 (08:13→17:43)
[2021-02-05 08:14] LABS: BUN/Creatinine Ratio 20 (6-26); Blood Urea Nitrogen 12 mg/dL (6-20); Calcium 8.7 mg/dL (8.6-10.3); Carbon Dioxide 30 mEq/L (23-29); Chloride 103 mEq/L (98-107); Glucose 184 mg/dL (70-105); Magnesium 1.8 mg/dL (1.6-2.6); Osmolality,Calculated 293 (280-300); Potassium 3.9 mEq/L (3.5-5.1); Sodium 139 mEq/L (136-145); eGFR For African Americans > 60 (> 60); eGFR For Non-African Americans > 60 (> 60)
[2021-02-06 02:59] LABS: Basophils % 0.4 %; Blood Urea Nitrogen 15 mg/dL (6-20); Calcium 8.5 mg/dL (8.6-10.3); Carbon Dioxide 26 mEq/L (23-29); Chloride 104 mEq/L (98-107); Glucose 149 mg/dL (70-105); Magnesium 1.9 mg/dL (1.6-2.6); Mean Corpuscular HGB Conc 31.1 g/dL (31.6-35.5); Monocytes % 12.4 %; Osmolality,Calculated 290 (280-300); Phosphorous 3.9 mg/dL (2.7-4.5); Potassium 3.8 mEq/L (3.5-5.1); Red Cell Distribution Width 16.6 % (11.5-14.5); Sodium 138 mEq/L (136-145)
[2021-02-06 03:01] LABS: Eosinophils # 0.1 K/mcL (0.0-0.6); Eosinophils % 3.8 %; Hematocrit 33.1 % (35.3-44.9); Hemoglobin 10.3 g/dL (11.5-15.4); Immature Granulocytes % 0.9 % (0-4); Immature Platelets 2.5 % (1.1-6.1); Lymphocytes # 0.8 K/mcL (0.6-4.6); Lymphocytes % 32.9 %; Mean Corpuscular Hemoglobin 25.2 pg (28.0-33.3); Mean Corpuscular Volume 80.9 fL (83.0-100.0); Mean Platelet Volume 9.8 fL (9.4-12.4); Monocytes # 0.3 K/mcL (0.0-1.3); Red Blood Count 4.09 M/mcL (3.82-4.97); Segmented Neutrophils % 49.6 %; White Blood Count 2.3 K/mcL (4.3-11.1)
[2021-02-06 03:12] LABS: Neutrophils # 1.1 K/mcL (1.6-8.9); Platelet Count 74 K/mcL (140-400)
[2021-02-06] MEDS: Vancomycin 1,500 MG/265 ML IV.SOLN IVPB SCH (03:14)
[2021-02-06 03:44] LABS: BUN/Creatinine Ratio 22 (6-26); eGFR For African Americans > 60 (> 60); eGFR For Non-African Americans > 60 (> 60)
[2021-02-06] MEDS: *HR* Enoxaparin 40 MG/0.4 ML SYRINGE SQ SCH (05:10)
[2021-02-06] MEDS: *HR* OxyCODONE Immed Rel 5 MG TABLET PO PRN (05:27)
[2021-02-06] MEDS: Insulin LISPRO 300 UNITS/3 ML VIAL SUBQ SCH ×2 (08:51→11:10)
[2021-02-06] MEDS: ALPRAZolam 0.25 MG TABLET PO SCH (08:52)
[2021-02-06] MEDS: Insulin DETEMIR 100 UNIT/ML X5UNITS SUBQ SCH (08:52)
[2021-02-06] MEDS: Divalproex (12 HR) 500 MG TABLET PO SCH (08:53)
[2021-02-06] MEDS: Lactobacillus 1 EACH CAP.SPRINK PO SCH (08:53)
[2021-02-06] MEDS: lamoTRIgine 100 MG TABLET PO SCH (08:54)
[2021-02-06] MEDS: OLANZapine 10 MG TAB.RAPDIS PO SCH (08:54)
[2021-02-06] MEDS ORDERED: Divalproex Sodium 125 MG Sprinkle Capsule (DR) PO SCH (09:15)
[2021-02-06 10:59] VITALS: BP 123/77; PULSE 75; TEMP 98.1; O2SAT 96
== END 2021-02-06 14:59 | disposition home health service (06) | DRG 872 ==
LOC: 3ANU → SUATTDRO 02-03 14:35
PROVIDERS: ADMIT Internal Medicine; ATTEND Hospitalist